=== PATIENT | female | born 1925 | race Caucasian/White ===

== ENCOUNTER 2016-08-27 19:27 | Inpatient (IN) | payer MEDICARE ==
[~2016-08-27] VITALS: Ht 165.1 cm; Wt 43.5 kg
[~2016-08-27 19:27] MED LIST: ATENOLOL25 MG ORAL
[2016-08-27 19:40] VITALS: BP 125/53
[2016-08-27 20:29] LABS: EOSINOPHILS % (AUTO) 1.2 % (0.0-3.0); LYMPHOCYTES % (AUTO) 10.3 % (20.0-45.0); MEAN CORPUSCULAR HEMOGLOBIN 32.5 PG (27.0-31.0); MEAN CORPUSCULAR HGB CONC 32.6 G/DL (32.0-36.0); MEAN CORPUSCULAR VOLUME 100 FL (80-99); MEAN PLATELET VOLUME 8.6 FL (6.5-10.1); MONOCYTES % (AUTO) 9.9 % (1.0-10.0); NEUTROPHILS % (AUTO) 77.6 % (45.0-75.0); PLATELET COUNT 216 K/UL (150-450); RED BLOOD COUNT 3.72 M/UL (4.20-5.40); RED CELL DISTRIBUTION WIDTH 12.1 % (11.6-14.8)
[2016-08-27 20:34] LABS: PROTHROMBIN TIME 10.1 SEC (9.30-11.50)
[2016-08-27 20:43] LABS: TROPONIN I < 0.30 ng/mL (<=0.30)
[2016-08-27 20:47] LABS: ALANINE AMINOTRANSFERASE 17 U/L (3-33); ANION GAP 8 (5-15); ASPARTATE AMINO TRANSFERASE 19 U/L (5-40); CARBON DIOXIDE 28 mEQ/L (20-30); CHLORIDE 102 mEQ/L (98-107); CREATININE 0.6 mg/dL (0.5-0.9); HEMOLYSIS 3; POTASSIUM 4.2 mEQ/L (3.4-4.9); SODIUM 138 mEQ/L (135-145); TOTAL PROTEIN 6.8 g/dL (6.6-8.7)
[2016-08-27 20:58] LABS: CKMB 4.7 ng/mL (< 3.8)
[2016-08-27 21:30] VITALS: BP 140/72
[2016-08-27] MEDS ORDERED: Morphine Sulfate 2mg/ml Inj IVP ONE ×3 (21:30→22:30)
[2016-08-27] MEDS ORDERED: Vancomycin 1 GM in NS 275 ML IV ONE (21:30)
[2016-08-27 22:00] VITALS: BP 151/105
[2016-08-27] MEDS ORDERED: Vancomycin 1gm inj IVPB ONE (22:00)
[2016-08-27] MEDS ORDERED: NS 275 ML ONE (22:00)
[2016-08-27] MEDS ORDERED: Atenolol 25mg tab ORAL ONE (22:00)
[2016-08-27] MEDS ORDERED: Tylenol #3 tab (300mg/30mg) ORAL ONE (22:00)
[2016-08-27] MEDS ORDERED: Morphine Sulfate 2mg/ml Inj IM PRN (22:00)
--- NOTE | 2016-08-27 22:54 | Emergency Room Report ---
History of Present Illness General Chief Complaint: Wound Recheck/Suture Removal Source: Patient Present Illness HPI 89-year-old female presents ED for evaluation of ulcer to the left ankle. States that approximately 3 months ago she bumped ankle against furniture and states that there was a cut. Patient states she never really took care of the ankle and has had increased swelling and pain with ulceration. Pain is 8/10, throbbing, radiating down the leg. Patient also notes bleeding from an ulcer. Denies taking blood thinners. Denies fevers or chills. No other aggravating relieving factors. Denies any other associated symptoms Allergies: Coded Allergies: No Known Allergies (Unverified , 08/27/16) Patient History Past Medical History: HTN Past Surgical History: none Pertinent Family History: none Social History: Denies: alcohol use, drug use, smoking Last Menstrual Period: n/a Now: No Immunizations: UTD Reviewed Nursing Documentation: PMH: Agreed, PSxH: Agreed Nursing Documentation-PMH Past Medical History: No History, Except For Hx Hypertension: Yes Review of Systems All Other Systems: negative except mentioned in HPI Physical Exam Vital Signs Date Time Temp Pulse Resp B/P Pulse Ox O2 Delivery O2 Flow Rate FiO2 08/27/16 19:21 97.9 106 16 126/65 98 Sp02 EP Interpretation: reviewed, normal General Appearance: no apparent distress, alert, GCS 15, non-toxic Head: normocephalic, atraumatic Eyes: bilateral eye PERRL, bilateral eye normal inspection ENT: hearing grossly normal, normal pharynx, no angioedema, normal voice Neck: full range of motion, supple/symm/no masses Respiratory: chest non-tender, lungs clear, normal breath sounds, speaking full sentences Cardiovascular #1: regular rate, rhythm, no edema Cardiovascular #2: 2+ carotid (R), 2+ carotid (L), 2+ radial (R), 2+ radial (L) , 2+ dorsalis pedis (R), 2+ dorsalis pedis (L) Gastrointestinal: normal bowel sounds, non tender, soft, non-distended, no guarding, no rebound Rectal: deferred Genitourinary: normal inspection, no CVA tenderness Musculoskeletal: back normal, gait/station normal, normal range of motion, non- tender Neurologic: alert, oriented x3, responsive, motor strength/tone normal, sensory intact, speech normal Psychiatric: judgement/insight normal, memory normal, mood/affect normal, no suicidal/homicidal ideation Reflexes: 3+ bicep (R), 3+ bicep (L), 3+ tricep (R), 3+ tricep (L), 3+ knee (R) , 3+ knee (L) Skin: other - ulceration noted to L ankle. some point bleeding noted. erythema/ iinduration noted to L foot and ankle Lymphatic: no adenopathy Medical Decision Making Diagnostic Impression: Primary Impression: Cellulitis of left ankle Additional Impression: Atrial fibrillation with rapid ventricular response ER Course Hospital Course 89-year-old female presents to ED with bleeding and pain of the left ankle. Ulcer on treated for many months Differential diagnoses include: Cellulitis, abscess, rash. Clinical course Patient placed on stretcher. After initial history and physical I ordered labs , blood Cx, UA, IVFs labs reviewed - no leukocytosis, Hb/Hct stable, no electrolyte abnormalities. Patient noted to be tachycardic. EKG shows atrial fibrillation with RVR Patient given atenolol. Refusing IV medications Pressure dressing applied to the ankle with bleeding controlled. antibiotics given. Case discussed with Dr Catherine and he agreed to accept the patient to his service for further care and support Diagnosis - cellulitis of left ankle, afib with RVR Patient admitted to telemetry in serious condition Labs Test 08/27/16 19:35 White Blood Count 7.0 K/UL (4.8-10.8) Red Blood Count 3.72 M/UL (4.20-5.40) Hemoglobin 12.1 G/DL (12.0-16.0) Hematocrit 37.0 % (37.0-47.0) Mean Corpuscular Volume 100 FL (80-99) Mean Corpuscular Hemoglobin 32.5 PG (27.0-31.0) Mean Corpuscular Hemoglobin Concent 32.6 G/DL (32.0-36.0) Red Cell Distribution Width 12.1 % (11.6-14.8) Platelet Count 216 K/UL (150-450) Mean Platelet Volume 8.6 FL (6.5-10.1) Neutrophils (%) (Auto) 77.6 % (45.0-75.0) Lymphocytes (%) (Auto) 10.3 % (20.0-45.0) Monocytes (%) (Auto) 9.9 % (1.0-10.0) Eosinophils (%) (Auto) 1.2 % (0.0-3.0) Basophils (%) (Auto) 1.0 % (0.0-2.0) Prothrombin Time 10.1 SEC (9.30-11.50) Prothromb Time International Ratio 1.0 (0.9-1.1) Activated Partial Thromboplast Time 24 SEC (23-33) Sodium Level 138 mEQ/L (135-145) Potassium Level 4.2 mEQ/L (3.4-4.9) Chloride Level 102 mEQ/L (98-107) Carbon Dioxide Level 28 mEQ/L (20-30) Anion Gap 8 (5-15) Blood Urea Nitrogen 27 mg/dL (7-23) Creatinine 0.6 mg/dL (0.5-0.9) Estimat Glomerular Filtration Rate mL/min (>60) Glucose Level 125 mg/dL (74-106) Lactic Acid Level 1.20 mmol/L (0.66-2.22) Calcium Level 9.0 mg/dL (8.6-10.2) Total Bilirubin 0.4 mg/dL (0.0-1.2) Aspartate Amino Transf (AST/SGOT) 19 U/L (5-40) Alanine Aminotransferase (ALT/SGPT) 17 U/L (3-33) Alkaline Phosphatase 69 U/L (35-104) Total Creatine Kinase 83 U/L (26-140) Creatine Kinase MB 4.7 ng/mL (< 3.8) Creatine Kinase MB Relative Index 5.6 Troponin I < 0.30 ng/mL (<=0.30) Total Protein 6.8 g/dL (6.6-8.7) Albumin 3.4 g/dL (3.5-5.2) Globulin 3.4 g/dL Albumin/Globulin Ratio 1.0 (1.0-2.7) EKG Diagnostic Results Rate: tachycardiac Rhythm: other - afib with RVR ST Segments: no acute changes ASA given to the pt in ED: No Rhythm Strip Diag. Results EP Interpretation: yes Rhythm: no PVC's, no ectopy Last Vital Signs Date Time Temp Pulse Resp B/P Pulse Ox O2 Delivery O2 Flow Rate FiO2 7/12/17 19:21 97.9 106 16 126/65 98 Status: improved Disposition: ADMITTED INPATIENT Condition: Serious Referrals: NOT CHOSEN LONNY/,REFERRING (PCP) TRISHA SAGASTUME M.D. Aug 27, 2016 22:54
[2016-08-27 23:01] VITALS: BP 151/100
[2016-08-28] VITALS (7 sets, daily range): BP systolic 107–136; BP diastolic 58–72
[2016-08-28] MEDS ORDERED: Diltiazem 25mg/5ml IV ONE
[2016-08-28] MEDS ORDERED: ATENOLOL25 MG ORAL (02:00)
[2016-08-28] MEDS: Atenolol 25mg tab ORAL SCH ×2 (08:43→21:30)
--- NOTE | 2016-08-28 09:26 | Diagnostic Imaging Report ---
Indications: Chest pain Technique: Leg the chest Findings: Comparison: None Cardiac silhouette enlarged. Pulmonary vasculature within normal limits. Lungs normally, symmetrically inflated. Lungs and pleura clear. Thoracic aorta mildly calcified and elongated. Bones diffusely demineralized. Thoracolumbar S-shaped scoliosis. IMPRESSION: No evidence of acute cardiopulmonary disease Cardiomegaly suggests cardiomyopathy Other chronic changes as described
[2016-08-28 09:27] LABS: BASOPHILS % (AUTO) 0.7 % (0.0-2.0); EOSINOPHILS % (AUTO) 0.9 % (0.0-3.0); MEAN CORPUSCULAR HEMOGLOBIN 31.7 PG (27.0-31.0); MEAN CORPUSCULAR HGB CONC 31.6 G/DL (32.0-36.0); MEAN CORPUSCULAR VOLUME 100 FL (80-99); MEAN PLATELET VOLUME 8.1 FL (6.5-10.1); MONOCYTES % (AUTO) 13.8 % (1.0-10.0); NEUTROPHILS % (AUTO) 73.6 % (45.0-75.0); PLATELET COUNT 217 K/UL (150-450); RED BLOOD COUNT 3.28 M/UL (4.20-5.40); RED CELL DISTRIBUTION WIDTH 12.2 % (11.6-14.8)
[2016-08-28 09:50] LABS: ANION GAP 11 (5-15); CALCIUM 8.9 mg/dL (8.6-10.2); CARBON DIOXIDE 27 mEQ/L (20-30); CHLORIDE 99 mEQ/L (98-107); CREATININE 0.5 mg/dL (0.5-0.9); HEMOLYSIS 0; POTASSIUM 4.1 mEQ/L (3.4-4.9); SODIUM 137 mEQ/L (135-145)
--- NOTE | 2016-08-28 11:04 | History & Physical ---
History and Physical History & Physicial Pt seen and examined, full H+P to follow, see admit orders Pt admitted for LE cellulitis, now on IV abx, ID consult pending, also with atrial fib on rate control, to be followed by cardiology CARLOS PONCE Aug 28, 2016 11:04
--- NOTE | 2016-08-28 14:23 | Infectious Diseases Prog Note ---
Assessment/Plan Assessment/Plan Full consult dictated: A) 1) left leg cellulitis and wound, hx mrsa per patient 2) pmh noted 3) allergies - negative P) 1) vancomycin 2) check wound culture and labs 3) wound care per protocol 4) thank you Subjective Allergies: Coded Allergies: No Known Allergies (Unverified , 08/27/16) Objective Vital Signs Last 24 Hour Vital Signs Date Time Temp Pulse Resp B/P Pulse Ox O2 Delivery O2 Flow Rate FiO2 08/28/16 12:00 91 08/28/16 12:00 97.7 89 20 112/67 94 Room Air 08/28/16 08:43 107 113/71 08/28/16 08:00 97.5 107 21 113/71 95 Room Air 08/28/16 08:00 110 08/28/16 04:00 98.0 108 20 107/62 98 Room Air 08/28/16 04:00 107 08/28/16 01:20 97.9 109 20 131/72 98 Room Air 08/28/16 00:45 98.1 08/28/16 00:39 98.1 94 24 136/61 98 Nasal Cannula 2.0 08/28/16 00:14 98.1 94 24 136/61 98 Nasal Cannula 2.0 08/28/16 00:02 130 139/78 08/27/16 23:01 108 18 151/100 97 08/27/16 22:00 108 18 151/105 97 Room Air 08/27/16 22:00 128 150/100 08/27/16 21:30 95 18 140/72 97 Room Air 08/27/16 19:40 88 16 125/53 99 Room Air 08/27/16 19:21 97.9 106 16 126/65 98 Height (Feet): 5 Height (Inches): 5.00 Weight (Pounds): 96 Laboratory Tests Test 08/27/16 19:35 08/28/16 08:30 White Blood Count 7.0 K/UL (4.8-10.8) 8.0 K/UL (4.8-10.8) Red Blood Count 3.72 M/UL (4.20-5.40) L 3.28 M/UL (4.20-5.40) L Hemoglobin 12.1 G/DL (12.0-16.0) 10.4 G/DL (12.0-16.0) L Hematocrit 37.0 % (37.0-47.0) 32.8 % (37.0-47.0) L Mean Corpuscular Volume 100 FL (80-99) H 100 FL (80-99) H Mean Corpuscular Hemoglobin 32.5 PG (27.0-31.0) H 31.7 PG (27.0-31.0) H Mean Corpuscular Hemoglobin Concent 32.6 G/DL (32.0-36.0) 31.6 G/DL (32.0-36.0) L Red Cell Distribution Width 12.1 % (11.6-14.8) 12.2 % (11.6-14.8) Platelet Count 216 K/UL (150-450) 217 K/UL (150-450) Mean Platelet Volume 8.6 FL (6.5-10.1) 8.1 FL (6.5-10.1) Neutrophils (%) (Auto) 77.6 % (45.0-75.0) H 73.6 % (45.0-75.0) Lymphocytes (%) (Auto) 10.3 % (20.0-45.0) L 11.0 % (20.0-45.0) L Monocytes (%) (Auto) 9.9 % (1.0-10.0) 13.8 % (1.0-10.0) H Eosinophils (%) (Auto) 1.2 % (0.0-3.0) 0.9 % (0.0-3.0) Basophils (%) (Auto) 1.0 % (0.0-2.0) 0.7 % (0.0-2.0) Prothrombin Time 10.1 SEC (9.30-11.50) Prothromb Time International Ratio 1.0 (0.9-1.1) Activated Partial Thromboplast Time 24 SEC (23-33) Sodium Level 138 mEQ/L (135-145) 137 mEQ/L (135-145) Potassium Level 4.2 mEQ/L (3.4-4.9) 4.1 mEQ/L (3.4-4.9) Chloride Level 102 mEQ/L (98-107) 99 mEQ/L (98-107) Carbon Dioxide Level 28 mEQ/L (20-30) 27 mEQ/L (20-30) Anion Gap 8 (5-15) 11 (5-15) Blood Urea Nitrogen 27 mg/dL (7-23) H 21 mg/dL (7-23) Creatinine 0.6 mg/dL (0.5-0.9) 0.5 mg/dL (0.5-0.9) Estimat Glomerular Filtration Rate mL/min (>60) mL/min (>60) Glucose Level 125 mg/dL (74-106) H 133 mg/dL (74-106) H Lactic Acid Level 1.20 mmol/L (0.66-2.22) Calcium Level 9.0 mg/dL (8.6-10.2) 8.9 mg/dL (8.6-10.2) Total Bilirubin 0.4 mg/dL (0.0-1.2) Aspartate Amino Transf (AST/SGOT) 19 U/L (5-40) Alanine Aminotransferase (ALT/SGPT) 17 U/L (3-33) Alkaline Phosphatase 69 U/L (35-104) Total Creatine Kinase 83 U/L (26-140) Creatine Kinase MB 4.7 ng/mL (< 3.8) H Creatine Kinase MB Relative Index 5.6 Troponin I < 0.30 ng/mL (<=0.30) Total Protein 6.8 g/dL (6.6-8.7) Albumin 3.4 g/dL (3.5-5.2) L Globulin 3.4 g/dL Albumin/Globulin Ratio 1.0 (1.0-2.7) Current Medications Medications (Trade) Dose Ordered Sig/Salome Route PRN Reason Start Time Stop Time Status Last Admin Dose Admin Atenolol (Tenormin) 25 mg Q12HR ORAL 08/28/16 09:00 09/27/16 08:59 08/28/16 08:43 Heparin Sodium (Porcine) 5000 units 5,000 units EVERY 12 HOURS SUBQ 08/28/16 21:00 09/27/16 20:59 Morphine Sulfate (Morphine Sulfate) 2 mg Q3H PRN IM PAIN 4-10 08/28/16 06:30 09/04/16 06:29 Vancomycin HCl (Vanco rx to dose) 1 ea DAILY PRN MISC Per rx protocol 08/28/16 10:45 09/27/16 10:44 Vancomycin HCl/ Dextrose (Vancomycin/D5W) 110 ml @ 110 mls/hr Q24H IVPB 08/28/16 22:00 09/02/16 21:59 LUKAS STEVENSON Aug 28, 2016 14:23
--- NOTE | 2016-08-28 16:31 | History and Physical ---
History of Present Illness General Date patient seen: Aug 28, 2016 Reason for Hospitalization: Wound Recheck/Suture Removal Present Illness Allergies: Coded Allergies: No Known Allergies (Unverified , 08/27/16) Medication History Scheduled Atenolol* (Tenormin*), 25 MG ORAL BID, (Reported) Discontinued Medications Atenolol* (Tenormin*), 25 MG ORAL DAILY, (Reported) Discontinued Reason: Medication dose changed Patient History Healthcare decision maker Resuscitation status Full Code Advanced Directive on File Review of Systems Constitutional: Reports: chills, fever, malaise, no symptoms, other, see HPI, sweats, weakness Eye: Reports: acuity changes, blurred vision, discharge, double vision, eye pain, no symptoms, nose congestion, nose pain, other, see HPI, tearing ENT: Reports: ear discharge, ear pain, hearing loss, mouth pain, nasal discharge, no symptoms, nose congestion, nose pain, other, see HPI, throat pain , throat swelling Respiratory: Reports: cough, no symptoms Cardiovascular: Reports: chest pain Physical Exam General Appearance: no apparent distress, severe distress, agitated, combative Lines, tubes and drains: peripheral, central line, PICC HEENT: PERRL, no JVD - jvd present Last 24 Hour Vital Signs Date Time Temp Pulse Resp B/P Pulse Ox O2 Delivery O2 Flow Rate FiO2 08/28/16 12:00 91 08/28/16 12:00 97.7 89 20 112/67 94 Room Air 08/28/16 08:43 107 113/71 08/28/16 08:00 97.5 107 21 113/71 95 Room Air 08/28/16 08:00 110 08/28/16 04:00 98.0 108 20 107/62 98 Room Air 08/28/16 04:00 107 08/28/16 01:20 97.9 109 20 131/72 98 Room Air 08/28/16 00:45 98.1 08/28/16 00:39 98.1 94 24 136/61 98 Nasal Cannula 2.0 08/28/16 00:14 98.1 94 24 136/61 98 Nasal Cannula 2.0 08/28/16 00:02 130 139/78 08/27/16 23:01 108 18 151/100 97 08/27/16 22:00 108 18 151/105 97 Room Air 08/27/16 22:00 128 150/100 08/27/16 21:30 95 18 140/72 97 Room Air 08/27/16 19:40 88 16 125/53 99 Room Air 08/27/16 19:21 97.9 106 16 126/65 98 Intake and Output 08/27/16 08/28/16 19:00 07:00 Intake Total 395 ml Balance 395 ml Intake Oral 120 ml IV Total 275 ml # Voids 2 Laboratory Tests Test 08/27/16 19:35 08/28/16 08:30 White Blood Count 7.0 K/UL (4.8-10.8) 8.0 K/UL (4.8-10.8) Red Blood Count 3.72 M/UL (4.20-5.40) L 3.28 M/UL (4.20-5.40) L Hemoglobin 12.1 G/DL (12.0-16.0) 10.4 G/DL (12.0-16.0) L Hematocrit 37.0 % (37.0-47.0) 32.8 % (37.0-47.0) L Mean Corpuscular Volume 100 FL (80-99) H 100 FL (80-99) H Mean Corpuscular Hemoglobin 32.5 PG (27.0-31.0) H 31.7 PG (27.0-31.0) H Mean Corpuscular Hemoglobin Concent 32.6 G/DL (32.0-36.0) 31.6 G/DL (32.0-36.0) L Red Cell Distribution Width 12.1 % (11.6-14.8) 12.2 % (11.6-14.8) Platelet Count 216 K/UL (150-450) 217 K/UL (150-450) Mean Platelet Volume 8.6 FL (6.5-10.1) 8.1 FL (6.5-10.1) Neutrophils (%) (Auto) 77.6 % (45.0-75.0) H 73.6 % (45.0-75.0) Lymphocytes (%) (Auto) 10.3 % (20.0-45.0) L 11.0 % (20.0-45.0) L Monocytes (%) (Auto) 9.9 % (1.0-10.0) 13.8 % (1.0-10.0) H Eosinophils (%) (Auto) 1.2 % (0.0-3.0) 0.9 % (0.0-3.0) Basophils (%) (Auto) 1.0 % (0.0-2.0) 0.7 % (0.0-2.0) Prothrombin Time 10.1 SEC (9.30-11.50) Prothromb Time International Ratio 1.0 (0.9-1.1) Activated Partial Thromboplast Time 24 SEC (23-33) Sodium Level 138 mEQ/L (135-145) 137 mEQ/L (135-145) Potassium Level 4.2 mEQ/L (3.4-4.9) 4.1 mEQ/L (3.4-4.9) Chloride Level 102 mEQ/L (98-107) 99 mEQ/L (98-107) Carbon Dioxide Level 28 mEQ/L (20-30) 27 mEQ/L (20-30) Anion Gap 8 (5-15) 11 (5-15) Blood Urea Nitrogen 27 mg/dL (7-23) H 21 mg/dL (7-23) Creatinine 0.6 mg/dL (0.5-0.9) 0.5 mg/dL (0.5-0.9) Estimat Glomerular Filtration Rate mL/min (>60) mL/min (>60) Glucose Level 125 mg/dL (74-106) H 133 mg/dL (74-106) H Lactic Acid Level 1.20 mmol/L (0.66-2.22) Calcium Level 9.0 mg/dL (8.6-10.2) 8.9 mg/dL (8.6-10.2) Total Bilirubin 0.4 mg/dL (0.0-1.2) Aspartate Amino Transf (AST/SGOT) 19 U/L (5-40) Alanine Aminotransferase (ALT/SGPT) 17 U/L (3-33) Alkaline Phosphatase 69 U/L (35-104) Total Creatine Kinase 83 U/L (26-140) Creatine Kinase MB 4.7 ng/mL (< 3.8) H Creatine Kinase MB Relative Index 5.6 Troponin I < 0.30 ng/mL (<=0.30) Total Protein 6.8 g/dL (6.6-8.7) Albumin 3.4 g/dL (3.5-5.2) L Globulin 3.4 g/dL Albumin/Globulin Ratio 1.0 (1.0-2.7) Height (Feet): 5 Height (Inches): 5.00 Weight (Pounds): 96 Medications Current Medications Medications (Trade) Dose Ordered Sig/Salome Route PRN Reason Start Time Stop Time Status Last Admin Dose Admin Atenolol (Tenormin) 25 mg Q12HR ORAL 08/28/16 09:00 09/27/16 08:59 08/28/16 08:43 Heparin Sodium (Porcine) 5000 units 5,000 units EVERY 12 HOURS SUBQ 08/28/16 21:00 09/27/16 20:59 Morphine Sulfate (Morphine Sulfate) 2 mg Q3H PRN IM PAIN 4-10 08/28/16 06:30 09/04/16 06:29 Vancomycin HCl (Vanco rx to dose) 1 ea DAILY PRN MISC Per rx protocol 08/28/16 10:45 09/27/16 10:44 Vancomycin HCl/ Dextrose (Vancomycin/D5W) 110 ml @ 110 mls/hr Q24H IVPB 08/28/16 22:00 09/02/16 21:59 Meggan Hussein NMaverick Aug 28, 2016 16:30
--- NOTE | 2016-08-28 19:01 | History and Physical ---
Meggan Hussein N.P. 08/28/16 1901: History of Present Illness General Date patient seen: Aug 28, 2016 Time patient seen: 19:01 Reason for Hospitalization: LLE cellulitis Present Illness HPI 89-year-old female with a PMH of milton charles on metoprolol who presented to ED for evaluation of ulcer to the left lower extremity. She states that this started approximately 3 months ago when she bumped her left lower extremity against furniture and subsequently had a cut. She states that she was previously told she had MRSA of her LLE. Patient states that she never really took care of the leg and had increased swelling with pain, ulceration, and bleeding. Pain is 8/10 , throbbing, radiating down the leg. Patient also notes bleeding from an ulcer. Denies taking blood thinners. Denies fevers or chills. No other aggravating relieving factors. Denies any other associated symptom. Denies chest pain, SOB, n/v. Allergies: Coded Allergies: No Known Allergies (Unverified , 08/27/16) Medication History Scheduled Atenolol* (Tenormin*), 25 MG ORAL BID, (Reported) Discontinued Medications Atenolol* (Tenormin*), 25 MG ORAL DAILY, (Reported) Discontinued Reason: Medication dose changed Patient History History Provided By: Patient, Friend Healthcare decision maker Resuscitation status Full Code Advanced Directive on File Past Medical/Surgical History Past Medical/Surgical History: (1) Cellulitis of left ankle (2) Atrial fibrillation with rapid ventricular response Review of Systems Skin: Reports: lesions, rash Physical Exam General Appearance: no apparent distress, alert HEENT: normocephalic, atraumatic, PERRL, supple, no JVD Neck: non-tender, supple, normal inspection Respiratory/Chest: lungs clear, normal breath sounds, no respiratory distress Cardiovascular/Chest: no gallop/murmur, irregularly irregular Abdomen: normal bowel sounds, non tender, soft, no mass Extremities: normal range of motion, no calf tenderness, trace edema Skin Exam: other - left lower extremity ulcer with active drainage and surrounding erythema Neurologic: biomedical photographer II-XII grossly normal, no motor/sensory deficits, alert, oriented x 3 Musculoskeletal: atrophy Last 24 Hour Vital Signs Date Time Temp Pulse Resp B/P Pulse Ox O2 Delivery O2 Flow Rate FiO2 08/28/16 16:00 98.1 97 19 122/63 93 Room Air 08/28/16 16:00 92 08/28/16 12:00 91 08/28/16 12:00 97.7 89 20 112/67 94 Room Air 08/28/16 08:43 107 113/71 08/28/16 08:00 97.5 107 21 113/71 95 Room Air 08/28/16 08:00 110 08/28/16 04:00 98.0 108 20 107/62 98 Room Air 08/28/16 04:00 107 08/28/16 01:20 97.9 109 20 131/72 98 Room Air 08/28/16 00:45 98.1 08/28/16 00:39 98.1 94 24 136/61 98 Nasal Cannula 2.0 08/28/16 00:14 98.1 94 24 136/61 98 Nasal Cannula 2.0 08/28/16 00:02 130 139/78 08/27/16 23:01 108 18 151/100 97 08/27/16 22:00 108 18 151/105 97 Room Air 08/27/16 22:00 128 150/100 08/27/16 21:30 95 18 140/72 97 Room Air 08/27/16 19:40 88 16 125/53 99 Room Air 08/27/16 19:21 97.9 106 16 126/65 98 Intake and Output 08/27/16 08/28/16 19:00 07:00 Intake Total 395 ml Balance 395 ml Intake Oral 120 ml IV Total 275 ml # Voids 2 Laboratory Tests Test 08/27/16 19:35 08/28/16 08:30 White Blood Count 7.0 K/UL (4.8-10.8) 8.0 K/UL (4.8-10.8) Red Blood Count 3.72 M/UL (4.20-5.40) L 3.28 M/UL (4.20-5.40) L Hemoglobin 12.1 G/DL (12.0-16.0) 10.4 G/DL (12.0-16.0) L Hematocrit 37.0 % (37.0-47.0) 32.8 % (37.0-47.0) L Mean Corpuscular Volume 100 FL (80-99) H 100 FL (80-99) H Mean Corpuscular Hemoglobin 32.5 PG (27.0-31.0) H 31.7 PG (27.0-31.0) H Mean Corpuscular Hemoglobin Concent 32.6 G/DL (32.0-36.0) 31.6 G/DL (32.0-36.0) L Red Cell Distribution Width 12.1 % (11.6-14.8) 12.2 % (11.6-14.8) Platelet Count 216 K/UL (150-450) 217 K/UL (150-450) Mean Platelet Volume 8.6 FL (6.5-10.1) 8.1 FL (6.5-10.1) Neutrophils (%) (Auto) 77.6 % (45.0-75.0) H 73.6 % (45.0-75.0) Lymphocytes (%) (Auto) 10.3 % (20.0-45.0) L 11.0 % (20.0-45.0) L Monocytes (%) (Auto) 9.9 % (1.0-10.0) 13.8 % (1.0-10.0) H Eosinophils (%) (Auto) 1.2 % (0.0-3.0) 0.9 % (0.0-3.0) Basophils (%) (Auto) 1.0 % (0.0-2.0) 0.7 % (0.0-2.0) Prothrombin Time 10.1 SEC (9.30-11.50) Prothromb Time International Ratio 1.0 (0.9-1.1) Activated Partial Thromboplast Time 24 SEC (23-33) Sodium Level 138 mEQ/L (135-145) 137 mEQ/L (135-145) Potassium Level 4.2 mEQ/L (3.4-4.9) 4.1 mEQ/L (3.4-4.9) Chloride Level 102 mEQ/L (98-107) 99 mEQ/L (98-107) Carbon Dioxide Level 28 mEQ/L (20-30) 27 mEQ/L (20-30) Anion Gap 8 (5-15) 11 (5-15) Blood Urea Nitrogen 27 mg/dL (7-23) H 21 mg/dL (7-23) Creatinine 0.6 mg/dL (0.5-0.9) 0.5 mg/dL (0.5-0.9) Estimat Glomerular Filtration Rate mL/min (>60) mL/min (>60) Glucose Level 125 mg/dL (74-106) H 133 mg/dL (74-106) H Lactic Acid Level 1.20 mmol/L (0.66-2.22) Calcium Level 9.0 mg/dL (8.6-10.2) 8.9 mg/dL (8.6-10.2) Total Bilirubin 0.4 mg/dL (0.0-1.2) Aspartate Amino Transf (AST/SGOT) 19 U/L (5-40) Alanine Aminotransferase (ALT/SGPT) 17 U/L (3-33) Alkaline Phosphatase 69 U/L (35-104) Total Creatine Kinase 83 U/L (26-140) Creatine Kinase MB 4.7 ng/mL (< 3.8) H Creatine Kinase MB Relative Index 5.6 Troponin I < 0.30 ng/mL (<=0.30) Total Protein 6.8 g/dL (6.6-8.7) Albumin 3.4 g/dL (3.5-5.2) L Globulin 3.4 g/dL Albumin/Globulin Ratio 1.0 (1.0-2.7) Height (Feet): 5 Height (Inches): 5.00 Weight (Pounds): 96 Medications Current Medications Medications (Trade) Dose Ordered Sig/Salome Route PRN Reason Start Time Stop Time Status Last Admin Dose Admin Atenolol (Tenormin) 25 mg Q12HR ORAL 08/28/16 09:00 09/27/16 08:59 08/28/16 08:43 Heparin Sodium (Porcine) 5000 units 5,000 units EVERY 12 HOURS SUBQ 08/28/16 21:00 09/27/16 20:59 Morphine Sulfate (Morphine Sulfate) 2 mg Q3H PRN IM PAIN 4-10 08/28/16 06:30 09/04/16 06:29 Vancomycin HCl (Vanco rx to dose) 1 ea DAILY PRN MISC Per rx protocol 08/28/16 10:45 09/27/16 10:44 Vancomycin HCl/ Dextrose (Vancomycin/D5W) 110 ml @ 110 mls/hr Q24H IVPB 08/28/16 22:00 09/02/16 21:59 Assessment/Plan Status: stable Status Narrative 89 y/o female presenting with LLE cellulitis, h/o MRSA, h/o a.fibb, rate controlled. Assessment/Plan Laboratory Tests Test 08/27/16 19:35 08/28/16 08:30 White Blood Count 7.0 K/UL (4.8-10.8) 8.0 K/UL (4.8-10.8) Red Blood Count 3.72 M/UL (4.20-5.40) L 3.28 M/UL (4.20-5.40) L Hemoglobin 12.1 G/DL (12.0-16.0) 10.4 G/DL (12.0-16.0) L Hematocrit 37.0 % (37.0-47.0) 32.8 % (37.0-47.0) L Mean Corpuscular Volume 100 FL (80-99) H 100 FL (80-99) H Mean Corpuscular Hemoglobin 32.5 PG (27.0-31.0) H 31.7 PG (27.0-31.0) H Mean Corpuscular Hemoglobin Concent 32.6 G/DL (32.0-36.0) 31.6 G/DL (32.0-36.0) L Red Cell Distribution Width 12.1 % (11.6-14.8) 12.2 % (11.6-14.8) Platelet Count 216 K/UL (150-450) 217 K/UL (150-450) Mean Platelet Volume 8.6 FL (6.5-10.1) 8.1 FL (6.5-10.1) Neutrophils (%) (Auto) 77.6 % (45.0-75.0) H 73.6 % (45.0-75.0) Lymphocytes (%) (Auto) 10.3 % (20.0-45.0) L 11.0 % (20.0-45.0) L Monocytes (%) (Auto) 9.9 % (1.0-10.0) 13.8 % (1.0-10.0) H Eosinophils (%) (Auto) 1.2 % (0.0-3.0) 0.9 % (0.0-3.0) Basophils (%) (Auto) 1.0 % (0.0-2.0) 0.7 % (0.0-2.0) Prothrombin Time 10.1 SEC (9.30-11.50) Prothrombin Time INR 1.0 (0.9-1.1) PTT 24 SEC (23-33) Sodium Level 138 mEQ/L (135-145) 137 mEQ/L (135-145) Potassium Level 4.2 mEQ/L (3.4-4.9) 4.1 mEQ/L (3.4-4.9) Chloride Level 102 mEQ/L (98-107) 99 mEQ/L (98-107) Carbon Dioxide Level 28 mEQ/L (20-30) 27 mEQ/L (20-30) Anion Gap 8 (5-15) 11 (5-15) Blood Urea Nitrogen 27 mg/dL (7-23) H 21 mg/dL (7-23) Creatinine 0.6 mg/dL (0.5-0.9) 0.5 mg/dL (0.5-0.9) Estimate Glomerular Filtration Rate mL/min (>60) mL/min (>60) Glucose Level 125 mg/dL (74-106) H 133 mg/dL (74-106) H Lactic Acid Level 1.20 mmol/L (0.66-2.22) Calcium Level 9.0 mg/dL (8.6-10.2) 8.9 mg/dL (8.6-10.2) Total Bilirubin 0.4 mg/dL (0.0-1.2) Aspartate Amino Transferase (AST) 19 U/L (5-40) Alanine Aminotransferase (ALT) 17 U/L (3-33) Alkaline Phosphatase 69 U/L (35-104) Total Creatine Kinase 83 U/L (26-140) Creatine Kinase MB 4.7 ng/mL (< 3.8) H Creatine Kinase MB Relative Index 5.6 Troponin I < 0.30 ng/mL (<=0.30) Total Protein 6.8 g/dL (6.6-8.7) Albumin 3.4 g/dL (3.5-5.2) L Globulin 3.4 g/dL Albumin/Globulin Ratio 1.0 (1.0-2.7) #LLE cellulitis, h/o MRSA - Admit to inpatient - IV vancomycin - F/u wound C&S - f/u blood cx - wound c/s - ID consult, Dr. Steele - no leuks, afebrile - pain control, supportive care - bowel regimen #A. fibb, rate-controlled - continue metoprolol 25mg PO qday - cards consult, Dr. Yuen - f/u ECHO - not on any blood thinners. Per patient, patient cannot tolerate even ASA 81mg ; states she has excessive bleeding from minor cuts #DVT ppx, high - heparin 5,000 units BID CARLOS PONCE 08/29/16 1423: History of Present Illness General Reason for Hospitalization: LLE cellulitis Present Illness Allergies: Coded Allergies: No Known Allergies (Unverified , 08/27/16) Medication History Scheduled Atenolol* (Tenormin*), 25 MG ORAL BID, (Reported) Discontinued Medications Atenolol* (Tenormin*), 25 MG ORAL DAILY, (Reported) Discontinued Reason: Medication dose changed Assessment/Plan Assessment/Plan I saw and examined the patient, reviewed the case in detail, reviewed radiology and EKG if applicable, in addition reviewing the laboratory data and microbiology. I agree with the history, physical examination findings, assessment and plan of care as outlined above by the Nurse Practitioner with any additions or modifications noted. Meggan Hussein N.P. Aug 28, 2016 19:01 CARLOS PONCE Aug 29, 2016 14:23
--- NOTE | 2016-08-28 19:04 | Cardiac Electrophysiology PN ---
Subjective Subjective [id number] Objective Last 24 Hour Vital Signs Date Time Temp Pulse Resp B/P Pulse Ox O2 Delivery O2 Flow Rate FiO2 08/28/16 16:00 98.1 97 19 122/63 93 Room Air 08/28/16 16:00 92 08/28/16 12:00 91 08/28/16 12:00 97.7 89 20 112/67 94 Room Air 08/28/16 08:43 107 113/71 08/28/16 08:00 97.5 107 21 113/71 95 Room Air 08/28/16 08:00 110 08/28/16 04:00 98.0 108 20 107/62 98 Room Air 08/28/16 04:00 107 08/28/16 01:20 97.9 109 20 131/72 98 Room Air 08/28/16 00:45 98.1 08/28/16 00:39 98.1 94 24 136/61 98 Nasal Cannula 2.0 08/28/16 00:14 98.1 94 24 136/61 98 Nasal Cannula 2.0 08/28/16 00:02 130 139/78 08/27/16 23:01 108 18 151/100 97 08/27/16 22:00 108 18 151/105 97 Room Air 08/27/16 22:00 128 150/100 08/27/16 21:30 95 18 140/72 97 Room Air 08/27/16 19:40 88 16 125/53 99 Room Air 08/27/16 19:21 97.9 106 16 126/65 98 Intake and Output 08/27/16 08/28/16 19:00 07:00 Intake Total 395 ml Balance 395 ml Intake Oral 120 ml IV Total 275 ml # Voids 2 Laboratory Tests Test 08/27/16 19:35 08/28/16 08:30 White Blood Count 7.0 K/UL (4.8-10.8) 8.0 K/UL (4.8-10.8) Red Blood Count 3.72 M/UL (4.20-5.40) L 3.28 M/UL (4.20-5.40) L Hemoglobin 12.1 G/DL (12.0-16.0) 10.4 G/DL (12.0-16.0) L Hematocrit 37.0 % (37.0-47.0) 32.8 % (37.0-47.0) L Mean Corpuscular Volume 100 FL (80-99) H 100 FL (80-99) H Mean Corpuscular Hemoglobin 32.5 PG (27.0-31.0) H 31.7 PG (27.0-31.0) H Mean Corpuscular Hemoglobin Concent 32.6 G/DL (32.0-36.0) 31.6 G/DL (32.0-36.0) L Red Cell Distribution Width 12.1 % (11.6-14.8) 12.2 % (11.6-14.8) Platelet Count 216 K/UL (150-450) 217 K/UL (150-450) Mean Platelet Volume 8.6 FL (6.5-10.1) 8.1 FL (6.5-10.1) Neutrophils (%) (Auto) 77.6 % (45.0-75.0) H 73.6 % (45.0-75.0) Lymphocytes (%) (Auto) 10.3 % (20.0-45.0) L 11.0 % (20.0-45.0) L Monocytes (%) (Auto) 9.9 % (1.0-10.0) 13.8 % (1.0-10.0) H Eosinophils (%) (Auto) 1.2 % (0.0-3.0) 0.9 % (0.0-3.0) Basophils (%) (Auto) 1.0 % (0.0-2.0) 0.7 % (0.0-2.0) Prothrombin Time 10.1 SEC (9.30-11.50) Prothromb Time International Ratio 1.0 (0.9-1.1) Activated Partial Thromboplast Time 24 SEC (23-33) Sodium Level 138 mEQ/L (135-145) 137 mEQ/L (135-145) Potassium Level 4.2 mEQ/L (3.4-4.9) 4.1 mEQ/L (3.4-4.9) Chloride Level 102 mEQ/L (98-107) 99 mEQ/L (98-107) Carbon Dioxide Level 28 mEQ/L (20-30) 27 mEQ/L (20-30) Anion Gap 8 (5-15) 11 (5-15) Blood Urea Nitrogen 27 mg/dL (7-23) H 21 mg/dL (7-23) Creatinine 0.6 mg/dL (0.5-0.9) 0.5 mg/dL (0.5-0.9) Estimat Glomerular Filtration Rate mL/min (>60) mL/min (>60) Glucose Level 125 mg/dL (74-106) H 133 mg/dL (74-106) H Lactic Acid Level 1.20 mmol/L (0.66-2.22) Calcium Level 9.0 mg/dL (8.6-10.2) 8.9 mg/dL (8.6-10.2) Total Bilirubin 0.4 mg/dL (0.0-1.2) Aspartate Amino Transf (AST/SGOT) 19 U/L (5-40) Alanine Aminotransferase (ALT/SGPT) 17 U/L (3-33) Alkaline Phosphatase 69 U/L (35-104) Total Creatine Kinase 83 U/L (26-140) Creatine Kinase MB 4.7 ng/mL (< 3.8) H Creatine Kinase MB Relative Index 5.6 Troponin I < 0.30 ng/mL (<=0.30) Total Protein 6.8 g/dL (6.6-8.7) Albumin 3.4 g/dL (3.5-5.2) L Globulin 3.4 g/dL Albumin/Globulin Ratio 1.0 (1.0-2.7) CHELY DAILY Aug 28, 2016 19:04
[2016-08-28] MEDS: Heparin 5000 units/ml inj SUBQ SCH (21:00)
[2016-08-28] MEDS: Morphine Sulfate 2mg/ml Inj IM PRN (21:42)
[2016-08-28] MEDS: Vancomycin 500mg/D5W 110ml IVPB SCH ×2 (22:06)
--- NOTE | 2016-08-28 23:39 | Wound Care Consultation ---
Wound Assessment Wound Assessment : Wound Number: #1 Wound Present on Admission: Yes New Wound: No Status Change of Wound: No Wound Location Body Site Modif: left, lower Wound Location Body Site: leg - and foot Wound Type: other - cellulitis with open wound Terrence Test: Does not Terrence Wound Thickness: Full Thickness Wound Drainage Description: Serosanguineous Wound Drainage Amount: Scant Wound Drainage Odor: None/Absent Tissue Surrounding Wound: Erythemic Wound General Appearance: Reddened, Draining Wound Comment #1 Left lower leg and foot cellulitis with open wound on lateral lower leg Recommendation -Left lower leg and foot with cellulitis Cleanse with saline, pat dry, apply Xeroform dressing, cover with 4x4, wrap with Kerlix daily and PRN soiled/dislodged -Keep clean and dry -Turn and reposition -Offload both heels -Elevate legs -Optimize nutrition -Assess and f/u accordingly for any changes WILLIE LUCIO RN Aug 28, 2016 23:39
[2016-08-29] VITALS: BP 121/62
[2016-08-29 04:00] VITALS: BP 113/57
[2016-08-29 08:00] VITALS: BP 138/72
[2016-08-29 08:10] LABS: THYROID STIMULATING HORMONE 1.37 uIU/mL (0.300-4.500)
[2016-08-29 08:21] LABS: APPEARANCE,URINE CLEAR; KETONES,URINE NEGATIVE (NEGATIVE); LEUKOCYTE ESTERASE ,URINE 1+ (NEGATIVE); NITRITE,URINE NEGATIVE (NEGATIVE); PH,URINE 5 (4.5-8.0); PROTEIN,URINE NEGATIVE (NEGATIVE); UROBILINOGEN,URINE NORMAL MG/DL (0.0-1.0)
[2016-08-29 08:31] LABS: BACTERIA,URINE FEW /HPF; RBC,URINE 0-2 /HPF (0 - 2); SQUAMOUS EPITHELIAL CELL,UR FEW /LPF (NONE/OCC)
[2016-08-29] MEDS: Aspirin EC 325mg tab ORAL SCH ×2 (09:00→09:48)
[2016-08-29] MEDS: Atenolol 25mg tab ORAL SCH ×2 (09:48→21:53)
[2016-08-29] MEDS: Heparin 5000 units/ml inj SUBQ SCH ×2 (09:51→21:54)
[2016-08-29] MEDS: Morphine Sulfate 2mg/ml Inj IM PRN ×3 (09:53→21:55)
[2016-08-29 12:00] VITALS: BP 115/68
[2016-08-29 16:00] VITALS: BP 130/65
--- NOTE | 2016-08-29 16:42 | General Progress Note ---
Assessment/Plan Problem List: (1) Cellulitis of left ankle Assessment & Plan: Cont IV abx per ID Apprec plastic surgery followup Wound care ICD Codes: L03.116 - Cellulitis of left lower limb SNOMED: 00714110 (2) Atrial fibrillation with rapid ventricular response Assessment & Plan: Cont rate control Apprec cardiology input Telemetry ICD Codes: I48.91 - Unspecified atrial fibrillation SNOMED: 171530421421239 Subjective Date patient seen: Aug 29, 2016 Time patient seen: 16:40 ROS Limited/Unobtainable: No Allergies: Coded Allergies: No Known Allergies (Unverified , 08/27/16) Subjective No acute overnight events, states leg pain is worse today, no fevers/chills, being examined at bedside by plastic surgery Objective Last 24 Hour Vital Signs Date Time Temp Pulse Resp B/P Pulse Ox O2 Delivery O2 Flow Rate FiO2 08/29/16 12:00 97.9 102 20 115/68 97 Room Air 08/29/16 09:48 88 138/72 08/29/16 08:00 97.0 88 21 138/72 92 Room Air 08/29/16 04:00 97.9 78 20 113/57 92 Room Air 2.0 08/29/16 04:00 83 08/29/16 00:00 97.9 72 18 121/62 92 Room Air 2.0 08/29/16 00:00 84 08/28/16 21:30 86 117/58 08/28/16 20:03 98.1 86 18 117/58 95 Room Air 2.0 08/28/16 20:00 83 Intake and Output 08/28/16 08/29/16 19:00 07:00 Intake Total 120 ml 230 ml Balance 120 ml 230 ml Intake Oral 120 ml 120 ml IV Total 110 ml # Voids 1 2 Laboratory Tests 08/29/16 06:47: Thyroid Stimulating Hormone (TSH) 1.370, Free Thyroxine 1.10 08/29/16 06:54: Urine Color Yellow, Urine Appearance Clear, Urine pH 5, Urine Specific [place] 1.025, Urine Protein Negative, Urine Glucose (UA) Negative, Urine Ketones Negative, Urine Occult Blood Negative, Urine Nitrite Negative, Urine Bilirubin Negative, Urine Urobilinogen Normal, Urine Leukocyte Esterase 1+H, Urine RBC 0-2 , Urine WBC 2-4, Urine Squamous Epithelial Cells Few, Urine Bacteria Few Height (Feet): 5 Height (Inches): 5.00 Weight (Pounds): 96 Objective General: alert, cooperative, no distress, appears stated age Head: normocephalic, without obvious abnormality, atraumatic Eyes: conjunctivae/corneas clear. PERRL, EOM's intact Throat: lips, mucosa, and tongue normal. MMM Neck: supple, symmetrical, trachea midline, and no JVD Lungs: clear to auscultation bilaterally Heart: regular rate and rhythm, S1, S2 normal, no murmur, click, rub or gallop Abdomen: soft, non-tender, non-distended, bowel sounds normal; no masses or organomegaly Extremities: LLE erythema, excoriation, venous stasis, tenderness, no induration /fluctuance Pulses: 2+ and symmetric Skin: skin color, texture, turgor normal; no rashes or lesions Neurologic: grossly normal, no focal deficits CARLOS PONCE Aug 29, 2016 16:42
--- NOTE | 2016-08-29 16:52 | Infectious Diseases Prog Note ---
Assessment/Plan Assessment/Plan Full consult dictated: A) 1) left leg cellulitis and gram + left leg wound infection, hx mrsa per patient 2) pmh noted 3) allergies - negative P) 1) vancomycin 2) check wound culture final and labs 3) wound care per protocol 4) will f/u Subjective Constitutional: Denies: fever Respiratory: Denies: shortness of breath Cardiovascular: Denies: chest pain Gastrointestinal/Abdominal: Denies: diarrhea, nausea, vomiting Genitourinary: Denies: nocturia Neurologic: Denies: headache Skin: Reports: ulcer, Denies: rash Musculoskeletal: Reports: other - left leg pain Allergies: Coded Allergies: No Known Allergies (Unverified , 08/27/16) Objective Vital Signs Last 24 Hour Vital Signs Date Time Temp Pulse Resp B/P Pulse Ox O2 Delivery O2 Flow Rate FiO2 08/29/16 12:00 97.9 102 20 115/68 97 Room Air 08/29/16 09:48 88 138/72 08/29/16 08:00 97.0 88 21 138/72 92 Room Air 08/29/16 04:00 97.9 78 20 113/57 92 Room Air 2.0 08/29/16 04:00 83 08/29/16 00:00 97.9 72 18 121/62 92 Room Air 2.0 08/29/16 00:00 84 08/28/16 21:30 86 117/58 08/28/16 20:03 98.1 86 18 117/58 95 Room Air 2.0 08/28/16 20:00 83 Height (Feet): 5 Height (Inches): 5.00 Weight (Pounds): 96 General Appearance: no acute distress HEENT: normocephalic, atraumatic, anicteric, mucous membranes moist, PERRL Respiratory/Chest: lungs clear, normal breath sounds, no respiratory distress, no accessory muscle use Cardiovascular: normal rate, regular rhythm, no gallop/murmur, no JVD Abdomen: normal bowel sounds, soft, non tender, no organomegaly, non distended Genitourinary: other - no mustafa Skin: no rash Neurologic/Psychiatric: 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 Complete 08/28/16 02:00 Ankle Left Gram Stain - Final Resulted 08/28/16 02:00 Wound Culture - Preliminary Gram Positive Cocci Resulted Laboratory Tests Test 08/29/16 06:47 08/29/16 06:54 Thyroid Stimulating Hormone (TSH) 1.370 uIU/mL (0.300-4.500) Free Thyroxine 1.10 ng/dL (0.86-1.85) Urine Color Yellow Urine Appearance Clear Urine pH 5 (4.5-8.0) Urine Specific [place] 1.025 (1.005-1.035) Urine Protein Negative (NEGATIVE) Urine Glucose (UA) Negative (NEGATIVE) Urine Ketones Negative (NEGATIVE) Urine Occult Blood Negative (NEGATIVE) Urine Nitrite Negative (NEGATIVE) Urine Bilirubin Negative (NEGATIVE) Urine Urobilinogen Normal MG/DL (0.0-1.0) Urine Leukocyte Esterase 1+ (NEGATIVE) H Urine RBC 0-2 /HPF (0 - 2) Urine WBC 2-4 /HPF (0 - 2) Urine Squamous Epithelial Cells Few /LPF (NONE/OCC) Urine Bacteria Few /HPF (NONE) Current Medications Medications (Trade) Dose Ordered Sig/[place] Route PRN Reason Start Time Stop Time Status Last Admin Dose Admin Aspirin (Ecotrin) 325 mg DAILY ORAL 08/29/16 09:00 09/28/16 08:59 Atenolol (Tenormin) 25 mg Q12HR ORAL 08/28/16 09:00 09/27/16 08:59 08/29/16 09:48 Heparin Sodium (Porcine) 5000 units 5,000 units EVERY 12 HOURS SUBQ 08/28/16 21:00 09/27/16 20:59 08/29/16 09:51 Morphine Sulfate (Morphine Sulfate) 2 mg Q3H PRN IM PAIN 4-10 08/28/16 06:30 09/04/16 06:29 08/29/16 09:53 Vancomycin HCl (Vanco rx to dose) 1 ea DAILY PRN MISC Per rx protocol 08/28/16 10:45 09/27/16 10:44 Vancomycin HCl/ Dextrose (Vancomycin/D5W) 110 ml @ 110 mls/hr Q24H IVPB 08/28/16 22:00 09/02/16 21:59 08/28/16 22:06 LUKAS STEVENSON Aug 29, 2016 16:52
[2016-08-29] MEDS ORDERED: NS 275ml ONE (17:04)
[2016-08-29] MEDS ORDERED: Tubing IV Secondary IV ONE (17:04)
--- NOTE | 2016-08-29 17:47 | Cardiac Electrophysiology PN ---
Assessment/Plan Assessment/Plan (1) Atrial fibrillation with rapid ventricular response. Rate controlled on Atenolol. Off anticoagulation per patient request and bleeding foot ulcer. (2) Cellulitis of left ankle on iv antibiotics. Subjective Subjective Still has severe pain at site of foot cellulitis. No chest pain or SOB.Remained in controlled fib. Objective Last 24 Hour Vital Signs Date Time Temp Pulse Resp B/P Pulse Ox O2 Delivery O2 Flow Rate FiO2 08/29/16 16:00 97.6 78 21 130/65 94 Room Air 08/29/16 12:00 97.9 102 20 115/68 97 Room Air 08/29/16 09:48 88 138/72 08/29/16 08:00 97.0 88 21 138/72 92 Room Air 08/29/16 04:00 97.9 78 20 113/57 92 Room Air 2.0 08/29/16 04:00 83 08/29/16 00:00 97.9 72 18 121/62 92 Room Air 2.0 08/29/16 00:00 84 08/28/16 21:30 86 117/58 08/28/16 20:03 98.1 86 18 117/58 95 Room Air 2.0 08/28/16 20:00 83 Intake and Output 08/28/16 08/29/16 19:00 07:00 Intake Total 120 ml 230 ml Balance 120 ml 230 ml Intake Oral 120 ml 120 ml IV Total 110 ml # Voids 1 2 Laboratory Tests Test 08/29/16 06:47 08/29/16 06:54 Thyroid Stimulating Hormone (TSH) 1.370 uIU/mL (0.300-4.500) Free Thyroxine 1.10 ng/dL (0.86-1.85) Urine Color Yellow Urine Appearance Clear Urine pH 5 (4.5-8.0) Urine Specific [place] 1.025 (1.005-1.035) Urine Protein Negative (NEGATIVE) Urine Glucose (UA) Negative (NEGATIVE) Urine Ketones Negative (NEGATIVE) Urine Occult Blood Negative (NEGATIVE) Urine Nitrite Negative (NEGATIVE) Urine Bilirubin Negative (NEGATIVE) Urine Urobilinogen Normal MG/DL (0.0-1.0) Urine Leukocyte Esterase 1+ (NEGATIVE) H Urine RBC 0-2 /HPF (0 - 2) Urine WBC 2-4 /HPF (0 - 2) Urine Squamous Epithelial Cells Few /LPF (NONE/OCC) Urine Bacteria Few /HPF (NONE) Microbiology Date/Time Source Procedure Growth Status 08/27/16 19:38 Blood Blood Culture - Preliminary NO GROWTH AFTER 24 HOURS Resulted 08/27/16 19:30 Blood Blood Culture - Preliminary NO GROWTH AFTER 24 HOURS Resulted 08/27/16 19:35 Nasal Nares MRSA Culture - Final NO METHICILLIN RESISTANT STAPH AUREUS... Complete 08/28/16 02:00 Ankle Left Gram Stain - Final Resulted 08/28/16 02:00 Wound Culture - Preliminary Gram Positive Cocci Resulted Objective Head: normocephalic, without obvious abnormality, atraumatic Neck: no JVD Lungs: clear to auscultation bilaterally Heart: Irregular rate and rhythm, no murmur, click, rub or gallop Abdomen: soft, non-tender, non-distended, bowel sounds normal; no masses or organomegaly Extremities: LLE erythema, excoriation, venous stasis, tenderness, CHELY DAILY Aug 29, 2016 17:47
--- NOTE | 2016-08-29 18:27 | Consultation ---
Consult Note Consult Note DATE OF CONSULTATION: 08/29/16 CONSULTING PHYSICIAN: Yoshi Flores DPM COVERING FOR: Jose Wood DPM REASON FOR CONSULT: Left leg cellulitis HISTORY OF PRESENT ILLNESS: Patient states she has had a chronic left leg ulcer after a table fell on her leg in January 2016. She was being treated by Dr David for wound care and states that the wound was slowly improving. She was evaluated at [facility] and was noted to have cellulitis of the left leg along with open wounds. Therefore, she was instructed to present to the emergency room in order to be admitted. Patient states that the leg is painful. No reports of nausea, vomiting, fevers, or chills ALLERGIES: No known PAST MEDICAL HISTORY: AFIB, left leg ulcer SOCIAL HISTORY: Patient lives at home alone. 2 years ago. She has one daughter locally but states she is very busy. Denies tobacco, alcohol, or illicit drug use FAMILY HISTORY: No pertinent findings Last 24 Hour Vital Signs Date Time Temp Pulse Resp B/P Pulse Ox O2 Delivery O2 Flow Rate FiO2 08/29/16 16:00 97.6 78 21 130/65 94 Room Air 08/29/16 12:00 97.9 102 20 115/68 97 Room Air 08/29/16 09:48 88 138/72 08/29/16 08:00 97.0 88 21 138/72 92 Room Air 08/29/16 04:00 97.9 78 20 113/57 92 Room Air 2.0 08/29/16 04:00 83 08/29/16 00:00 97.9 72 18 121/62 92 Room Air 2.0 08/29/16 00:00 84 08/28/16 21:30 86 117/58 08/28/16 20:03 98.1 86 18 117/58 95 Room Air 2.0 08/28/16 20:00 83 Laboratory Tests Test 08/29/16 06:47 08/29/16 06:54 Thyroid Stimulating Hormone (TSH) 1.370 uIU/mL (0.300-4.500) Free Thyroxine 1.10 ng/dL (0.86-1.85) Urine Color Yellow Urine Appearance Clear Urine pH 5 (4.5-8.0) Urine Specific Sunset 1.025 (1.005-1.035) Urine Protein Negative (NEGATIVE) Urine Glucose (UA) Negative (NEGATIVE) Urine Ketones Negative (NEGATIVE) Urine Occult Blood Negative (NEGATIVE) Urine Nitrite Negative (NEGATIVE) Urine Bilirubin Negative (NEGATIVE) Urine Urobilinogen Normal MG/DL (0.0-1.0) Urine Leukocyte Esterase 1+ (NEGATIVE) H Urine RBC 0-2 /HPF (0 - 2) Urine WBC 2-4 /HPF (0 - 2) Urine Squamous Epithelial Cells Few /LPF (NONE/OCC) Urine Bacteria Few /HPF (NONE) Microbiology Date/Time Source Procedure Growth Status 08/27/16 19:38 Blood Blood Culture - Preliminary NO GROWTH AFTER 24 HOURS Resulted 08/27/16 19:35 Nasal Nares MRSA Culture - Final NO METHICILLIN RESISTANT STAPH AUREUS... Complete 08/28/16 02:00 Ankle Left Gram Stain - Final Resulted 08/28/16 02:00 Wound Culture - Preliminary Gram Positive Cocci Resulted Physical exam: DERM: Left lower leg with full thickness ulcers at the posterior medial aspect with a fibrotic base. Patient has multiple other excoriations with serous drainage. Surrounding erythema and edema. Bilateral legs with hyperpigmentation NEURO: Sensation in tact to light touch. Pain with periwound palpation VASC: Left foot pedal pulses are difficult to palpate. Right foot pedal pulses are palpable MSK: Muscle strength appropriate for age Assessment/Plan Left leg cellulitis with acute exacerbation of chronic ulcers along with small multiple excoriations. - Start antibiotics per infectious disease specialist recs - Start daily dressing changes with topical antibiotic - Ordering vascular studies - Cultures taken. Follow up results Yoshi Flores DPM Aug 29, 2016 18:27
[2016-08-29 20:00] VITALS: BP 133/64
[2016-08-29] MEDS: Vancomycin 500mg/D5W 110ml IVPB SCH ×2 (22:14)
[2016-08-30] VITALS (7 sets, daily range): BP systolic 111–145; BP diastolic 64–81
--- NOTE | 2016-08-30 04:00 | Consultation ---
DATE OF CONSULTATION: 08/29/2016 INFECTIOUS DISEASES CONSULTATION ATTENDING PHYSICIAN: Walter Cid M.D. REASON FOR CONSULTATION: Left leg infected wound and left leg cellulitis. CHIEF COMPLAINT: The patient's chief complaint coming in to the hospital is lower extremity cellulitis. HISTORY OF PRESENT ILLNESS: This is a very pleasant 89-year-old female with a history of MRSA and soft tissue infection. The patient presents to [facility] with left leg swelling with the swelling consistent of cellulitis. She also has had left leg wound. She had a wound culture done yesterday, which has grown out gram-positive organism. The patient is on vancomycin. Infectious Disease consulted requested for further antibiotic management. MAR was noted. Orders were noted. Notes were reviewed. PAST MEDICAL HISTORY: The patient's past medical history includes the history of the following: The patient has a past medical history of atrial fibrillation, rapid ventricular response. She has a history of MRSA, soft tissue infection. She does also have a history of hypertension in addition to atrial fibrillation. No history of diabetes. MEDICATIONS: Upon reviewing the MAR, she is on the following medications. She is on aspirin, vancomycin, heparin, atenolol, and morphine. ALLERGIES: She has no known drug allergies. FAMILY HISTORY: Noncontributory. No mention of exposure to tuberculosis. SOCIAL HISTORY: Negative for smoking, alcohol or drug abuse. REVIEW OF SYSTEMS: Constitutional: The patient has generalized weakness and fatigue. No fevers, chills, or night sweats. Head And Neck: No thrush or dysphagia. Cardiac: No chest pain. Gastrointestinal: No nausea, vomiting, or diarrhea. Genitourinary: No Mccain. No dysuria or frequency. No hemoptysis or secretions. Pulmonary: No congestion or shortness of breath. Skin: No rash or itching. Extremities: Left leg pain. She has left leg redness and pain. Neurologic: No seizures. PHYSICAL EXAMINATION: GENERAL: Alert, responsive, and no acute distress. VITAL SIGNS: The patient's temperature is 97.6, pulse rate 78, respiratory rate 21, blood pressure 130/65, and saturation 94%. HEAD AND NECK: Oral exam, no thrush. Eye exam, no icterus. Normocephalic. No facial droop. No neck stiffness. HEART: Regular. No rubs, gallops, or murmur. Occasionally irregular. LUNGS: Clear bilaterally. No rhonchi or rales. ABDOMEN: Soft. Positive bowel sounds. Nontender. MUSCULOSKELETAL: No evidence of septic arthritis. Lower extremity examination, left leg she has a wound, secondary to cellulitis in the left leg and foot. Warmth and redness. SKIN: No rash. No dermatitis. PERIPHERAL VASCULAR: No gangrene. GENITOURINARY: No Mccain. LINES: Line site is without phlebitis. NEUROLOGIC: Intact. Nonfocal. LABORATORY AND DIAGNOSTIC DATA: White count 8.0, hemoglobin 10.4. Creatinine is 0.5. LFTs were noted. Wound cultures gram-positive organisms. Blood cultures are negative. Chest x-ray showed no evidence of pneumonia. No acute pulmonary disease. ASSESSMENT AND PLAN: 1. The patient has left leg input cellulitis and gram-positive left leg wound infection. 2. History of methicillin-resistant Staphylococcus aureus. Continue vancomycin. 3. Check final wound culture. 4. Wound care protocol. 5. We will await final wound culture results. Continue vancomycin and check creatinine on vancomycin. 6. Atrial fibrillation with rapid ventricular response. 7. The patient has been seen by commissary agent. 8. Hypertension. 9. Continue treatment per Dr. Cid and other consultants. 10. No history of diabetes. 11. Anemia. 12. No known allergies. 13. Social history is negative. 14. disorder. 15. Case discussed with Dr. Cid. Rubina Odom M.D. DR: RANDI JOB#: [id number] CC:
--- NOTE | 2016-08-30 06:30 | Consultation ---
DATE OF CONSULTATION: 08/29/2016 NOTE: "POOR AUDIO QUALITY" CONSULTING PHYSICIAN: Daniel Gale M.D. REFERRING PHYSICIAN: Walter Cid M.D. REASON FOR CONSULTATION: 1. Left lower extremity cellulitis. 2. Rule out underlying required. HISTORY OF PRESENT ILLNESS: This is an 89-year-old female with a past medical history of atrial fibrillation and is currently on metoprolol. She initially presented to [facility] for evaluation of ulcer in the eft lower extremity proximal femur against some furniture and developed a cut. She was seeing Harshil for wound care for an incision and drainage of the wound and has since not followed up with him. She was seen in an urgent care over the last few days. She was cultured did have some MRSA. The patient states that her leg has increased in pain and swelling over the last few days, currently on admission was 8/10. She denies shortness of breath, nausea, vomiting, or chest pain. ALLERGIES: No known allergies. MEDICATIONS: Please see list in chart for current medications. She is currently receiving vancomycin IV. PAST MEDICAL HISTORY: Includes cellulitis of the left ankle as well as atrial fibrillation with rapid ventricular response. REVIEW OF SYSTEMS: Negative except noted above. PHYSICAL EXAMINATION: GENERAL: The patient is lying in bed. She does not appear to be in distress. She is alert, awake and comfortable. HEENT: Normocephalic and atraumatic. Pupils are equal, round, and reactive to light. NECK: Supple. CHEST: Lungs clear to auscultation bilaterally. CARDIOVASCULAR: She has irregularly irregular heart rate. ABDOMEN: Soft, nontender, and nondistended. EXTREMITIES: Show right lower extremity and arms are within normal range. Left lower extremity shows cellulitis from the toes to the mid calf and area of ulceration on the medial aspect measuring about 2.5 x 5 x 3 cm with a layer of slough covering the wound. There does not appear to be anymore areas of fluctuance or underlying abscesses noted. Overall, appears to have limited cellulitis in the lower extremities, some edema to the foot. LABORATORY VALUES: White count is 1000, hematocrit 32.8, and platelet count of 217,000. ASSESSMENT AND PLAN: This is a pleasant 89-year-old female with a past medical history of left lower extremity wound, complicated by cellulitis and increasing over the last week or so. She has reportedly methicillin resistant Staphylococcus aureus. Infectious Disease is following the patient. She does not currently appear to have requirement for surgical drainage of the wound. My recommendation at this time is to continue with intravenous antibiotics per Infectious Disease recommendations as well as daily dressing with Xeroform, Kerlix wrap, and Sergio wrap and strict elevation of the left lower extremity. The patient will be followed closely by the plastic surgical team. Thank you very much for allowing me to participate in the care of this patient. Daniel Gale M.D. DR: FAITH JOB#: [id number] CC:
[2016-08-30 07:05] LABS: BASOPHILS % (AUTO) 0.8 % (0.0-2.0); EOSINOPHILS % (AUTO) 1.5 % (0.0-3.0); LYMPHOCYTES % (AUTO) 9.7 % (20.0-45.0); MEAN CORPUSCULAR VOLUME 100 FL (80-99); MEAN PLATELET VOLUME 7.9 FL (6.5-10.1); MONOCYTES % (AUTO) 11.6 % (1.0-10.0); NEUTROPHILS % (AUTO) 76.4 % (45.0-75.0); PLATELET COUNT 205 K/UL (150-450); RED BLOOD COUNT 3.47 M/UL (4.20-5.40); RED CELL DISTRIBUTION WIDTH 12.2 % (11.6-14.8); WHITE BLOOD COUNT 7.6 K/UL (4.8-10.8)
[2016-08-30 07:31] LABS: ANION GAP 10 (5-15); CALCIUM 9.1 mg/dL (8.6-10.2); CARBON DIOXIDE 29 mEQ/L (20-30); CHLORIDE 97 mEQ/L (98-107); CREATININE 0.4 mg/dL (0.5-0.9); HEMOLYSIS 0; POTASSIUM 4.2 mEQ/L (3.4-4.9); SODIUM 136 mEQ/L (135-145)
[2016-08-30] MEDS: Atenolol 25mg tab ORAL SCH ×2 (08:38→20:36)
[2016-08-30] MEDS: Aspirin EC 325mg tab ORAL SCH ×2 (08:38→09:00)
[2016-08-30] MEDS: Heparin 5000 units/ml inj SUBQ SCH ×2 (08:39→20:38)
[2016-08-30] MEDS: Morphine Sulfate 2mg/ml Inj IVP PRN ×2 (11:17→23:22)
--- NOTE | 2016-08-30 14:19 | Cardiac Electrophysiology PN ---
Assessment/Plan Assessment/Plan (1) Atrial fibrillation with rapid ventricular response. Rate controlled on Atenolol. Off anticoagulation per patient request and bleeding foot ulcer.Refuses even aspirin. (2) Cellulitis of left ankle on iv antibiotics. DW RN Subjective Subjective Pain at site of left foot cellulitis better after morphine. No chest pain or SOB.Remained in controlled fib.Had transient bradia with 3.6 second pause when she was nauseated. Objective Last 24 Hour Vital Signs Date Time Temp Pulse Resp B/P Pulse Ox O2 Delivery O2 Flow Rate FiO2 08/30/16 11:50 88 08/30/16 11:16 98.3 93 18 111/66 97 Room Air 08/30/16 08:38 95 145/81 08/30/16 07:42 90 08/30/16 07:35 98.1 95 18 145/81 93 Room Air 08/30/16 04:00 97.8 91 24 127/74 95 Room Air 08/30/16 04:00 74 08/30/16 00:00 93 08/30/16 00:00 98.7 112 24 133/64 95 08/29/16 23:07 98.7 08/29/16 21:53 91 114/67 08/29/16 20:00 98.7 112 24 133/64 95 08/29/16 20:00 97 08/29/16 16:00 97.6 78 21 130/65 94 Room Air 08/29/16 16:00 102 Intake and Output 08/29/16 08/30/16 19:00 07:00 Intake Total 400 ml 110 ml Output Total 400 ml Balance 400 ml -290 ml Intake Oral 400 ml IV Total 110 ml Output Urine Total 400 ml # Voids 1 Laboratory Tests Test 08/30/16 05:25 White Blood Count 7.6 K/UL (4.8-10.8) Red Blood Count 3.47 M/UL (4.20-5.40) L Hemoglobin 11.1 G/DL (12.0-16.0) L Hematocrit 34.7 % (37.0-47.0) L Mean Corpuscular Volume 100 FL (80-99) H Mean Corpuscular Hemoglobin 32.0 PG (27.0-31.0) H Mean Corpuscular Hemoglobin Concent 32.0 G/DL (32.0-36.0) Red Cell Distribution Width 12.2 % (11.6-14.8) Platelet Count 205 K/UL (150-450) Mean Platelet Volume 7.9 FL (6.5-10.1) Neutrophils (%) (Auto) 76.4 % (45.0-75.0) H Lymphocytes (%) (Auto) 9.7 % (20.0-45.0) L Monocytes (%) (Auto) 11.6 % (1.0-10.0) H Eosinophils (%) (Auto) 1.5 % (0.0-3.0) Basophils (%) (Auto) 0.8 % (0.0-2.0) Sodium Level 136 mEQ/L (135-145) Potassium Level 4.2 mEQ/L (3.4-4.9) Chloride Level 97 mEQ/L (98-107) L Carbon Dioxide Level 29 mEQ/L (20-30) Anion Gap 10 (5-15) Blood Urea Nitrogen 16 mg/dL (7-23) Creatinine 0.4 mg/dL (0.5-0.9) L Estimat Glomerular Filtration Rate mL/min (>60) Glucose Level 111 mg/dL (74-106) H Calcium Level 9.1 mg/dL (8.6-10.2) Microbiology Date/Time Source Procedure Growth Status 08/27/16 19:38 Blood Blood Culture - Preliminary NO GROWTH AFTER 48 HOURS Resulted 08/27/16 19:30 Blood Blood Culture - Preliminary NO GROWTH AFTER 48 HOURS Resulted 08/27/16 19:35 Nasal Nares MRSA Culture - Final NO METHICILLIN RESISTANT STAPH AUREUS... Complete 08/28/16 02:00 Ankle Left Gram Stain - Final Resulted 08/28/16 02:00 Wound Culture - Preliminary Staphylococcus Aureus - Mrsa Diphtheroids Resulted Objective Head: normocephalic, without obvious abnormality, atraumatic Neck: no JVD Lungs: clear to auscultation bilaterally Heart: Irregular rate and rhythm, no murmur, click, rub or gallop Abdomen: soft, non-tender, non-distended, bowel sounds normal; no masses or organomegaly Extremities: LLE erythema, excoriation, venous stasis, tenderness, CHELY DAILY Aug 30, 2016 14:19
--- NOTE | 2016-08-30 16:13 | General Progress Note ---
Assessment/Plan Problem List: (1) Cellulitis of left ankle Assessment & Plan: Cont IV abx per ID Apprec plastic surgery followup Wound care ICD Codes: L03.116 - Cellulitis of left lower limb SNOMED: 43635422 (2) Atrial fibrillation with rapid ventricular response Assessment & Plan: Cont rate control Apprec cardiology input Telemetry ICD Codes: I48.91 - Unspecified atrial fibrillation SNOMED: 871417788686511 Subjective Date patient seen: Aug 30, 2016 Time patient seen: 16:12 ROS Limited/Unobtainable: No Allergies: Coded Allergies: No Known Allergies (Unverified , 08/27/16) Subjective No acute overnight events, states leg pain is better today, no fevers/chills, seen yesterday by plastic surgery Objective Last 24 Hour Vital Signs Date Time Temp Pulse Resp B/P Pulse Ox O2 Delivery O2 Flow Rate FiO2 08/30/16 15:52 97.9 88 18 114/70 96 Room Air 08/30/16 11:50 88 08/30/16 11:16 98.3 93 18 111/66 97 Room Air 08/30/16 08:38 95 145/81 08/30/16 07:42 90 08/30/16 07:35 98.1 95 18 145/81 93 Room Air 08/30/16 04:00 97.8 91 24 127/74 95 Room Air 08/30/16 04:00 74 08/30/16 00:00 93 08/30/16 00:00 98.7 112 24 133/64 95 08/29/16 23:07 98.7 08/29/16 21:53 91 114/67 08/29/16 20:00 98.7 112 24 133/64 95 08/29/16 20:00 97 Intake and Output 08/29/16 08/30/16 19:00 07:00 Intake Total 400 ml 110 ml Output Total 400 ml Balance 400 ml -290 ml Intake Oral 400 ml IV Total 110 ml Output Urine Total 400 ml # Voids 1 Laboratory Tests 08/30/16 05:25: White Blood Count 7.6, Red Blood Count 3.47L, Hemoglobin 11.1L, Hematocrit 34.7L , Mean Corpuscular Volume 100H, Mean Corpuscular Hemoglobin 32.0H, Mean Corpuscular Hemoglobin Concent 32.0, Red Cell Distribution Width 12.2, Platelet Count 205, Mean Platelet Volume 7.9, Neutrophils (%) (Auto) 76.4H, Lymphocytes ( %) (Auto) 9.7L, Monocytes (%) (Auto) 11.6H, Eosinophils (%) (Auto) 1.5, Basophils (%) (Auto) 0.8, Sodium Level 136, Potassium Level 4.2, Chloride Level 97L, Carbon Dioxide Level 29, Anion Gap 10, Blood Urea Nitrogen 16, Creatinine 0.4L, Estimat Glomerular Filtration Rate , Glucose Level 111H, Calcium Level 9.1 Height (Feet): 5 Height (Inches): 5.00 Weight (Pounds): 96 Objective General: alert, cooperative, no distress, appears stated age Head: normocephalic, without obvious abnormality, atraumatic Eyes: conjunctivae/corneas clear. PERRL, EOM's intact Throat: lips, mucosa, and tongue normal. MMM Neck: supple, symmetrical, trachea midline, and no JVD Lungs: clear to auscultation bilaterally Heart: regular rate and rhythm, S1, S2 normal, no murmur, click, rub or gallop Abdomen: soft, non-tender, non-distended, bowel sounds normal; no masses or organomegaly Extremities: LLE erythema, excoriation, venous stasis, tenderness, no induration /fluctuance Pulses: 2+ and symmetric Skin: skin color, texture, turgor normal; no rashes or lesions Neurologic: grossly normal, no focal deficits CARLOS PONCE Aug 30, 2016 16:13
[2016-08-30] MEDS: Vancomycin 500mg/D5W 110ml IVPB SCH ×2 (22:00)
[2016-08-31] VITALS: BP 152/80
[2016-08-31] MEDS ORDERED: Vancomycin 750mg Inj IVPB ONE (02:05)
[2016-08-31] MEDS: Vancomycin 750mg/D5W 275ml IVPB SCH ×6 (03:50→23:33)
[2016-08-31 04:00] VITALS: BP 120/67
[2016-08-31 08:00] VITALS: BP 137/92
[2016-08-31] MEDS: Aspirin EC 325mg tab ORAL SCH (09:00)
[2016-08-31] MEDS: Atenolol 25mg tab ORAL SCH ×2 (09:11→20:51)
[2016-08-31] MEDS: Heparin 5000 units/ml inj SUBQ SCH ×2 (09:12→09:24)
--- NOTE | 2016-08-31 10:51 | General Progress Note ---
Assessment/Plan Problem List: (1) Cellulitis of left ankle Assessment & Plan: Cont IV abx per ID Apprec plastic surgery followup Wound care ICD Codes: L03.116 - Cellulitis of left lower limb SNOMED: 94121366 (2) Atrial fibrillation with rapid ventricular response Assessment & Plan: Cont rate control Apprec cardiology input Telemetry ICD Codes: I48.91 - Unspecified atrial fibrillation SNOMED: 032137823725197 Subjective Date patient seen: Aug 31, 2016 Time patient seen: 10:50 ROS Limited/Unobtainable: No Allergies: Coded Allergies: No Known Allergies (Unverified , 08/27/16) Subjective No acute overnight events, states leg pain is better today, no fevers/chills, no chest pain or dyspnea. Objective Last 24 Hour Vital Signs Date Time Temp Pulse Resp B/P Pulse Ox O2 Delivery O2 Flow Rate FiO2 08/31/16 09:11 91 137/92 08/31/16 08:00 97.0 91 16 137/92 95 Room Air 08/31/16 04:00 79 08/31/16 04:00 97.9 59 18 120/67 92 Room Air 08/31/16 03:50 98.2 08/31/16 00:00 98.2 102 20 152/80 94 Room Air 08/31/16 00:00 83 08/30/16 20:36 94 114/70 08/30/16 20:00 94 08/30/16 20:00 97.9 98 20 128/67 96 Room Air 08/30/16 19:04 94 08/30/16 15:52 97.9 88 18 114/70 96 Room Air 08/30/16 11:50 88 08/30/16 11:16 98.3 93 18 111/66 97 Room Air Intake and Output 08/30/16 08/31/16 19:00 07:00 Intake Total 540 ml 366.416 ml Output Total 300 ml Balance 240 ml 366.416 ml Intake Oral 540 ml IV Total 366.416 ml Output Urine Total 300 ml # Voids 3 # Bowel Movements 1 1 Laboratory Tests 08/30/16 21:27: Vancomycin Level Trough 2.9L Height (Feet): 5 Height (Inches): 5.00 Weight (Pounds): 96 Objective General: alert, cooperative, no distress, appears stated age Head: normocephalic, without obvious abnormality, atraumatic Eyes: conjunctivae/corneas clear. PERRL, EOM's intact Throat: lips, mucosa, and tongue normal. MMM Neck: supple, symmetrical, trachea midline, and no JVD Lungs: clear to auscultation bilaterally Heart: regular rate and rhythm, S1, S2 normal, no murmur, click, rub or gallop Abdomen: soft, non-tender, non-distended, bowel sounds normal; no masses or organomegaly Extremities: LLE erythema, excoriation, venous stasis, tenderness, no induration /fluctuance Pulses: 2+ and symmetric Skin: skin color, texture, turgor normal; no rashes or lesions Neurologic: grossly normal, no focal deficits CARLOS PONCE Aug 31, 2016 10:51
[2016-08-31 12:00] VITALS: BP 139/59
--- NOTE | 2016-08-31 14:54 | Cardiac Electrophysiology PN ---
Assessment/Plan Assessment/Plan 1. Atrial fibrillation with rapid ventricular response. Rate controlled on Atenolol. Refuses all anticoagulations including aspirin and even SQ heparin. 2. Cellulitis of left ankle on iv antibiotics. 3. MRSA wound On Vancomycin DW RN Subjective Subjective Comfortable in NAD. No chest pain or SOB.Remained in controlled fib.No further bradycardia when she was nauseated.No further today. Objective Last 24 Hour Vital Signs Date Time Temp Pulse Resp B/P Pulse Ox O2 Delivery O2 Flow Rate FiO2 08/31/16 12:00 96.8 92 22 139/59 96 Room Air 08/31/16 09:11 91 137/92 08/31/16 08:00 97.0 91 16 137/92 95 Room Air 08/31/16 04:00 79 08/31/16 04:00 97.9 59 18 120/67 92 Room Air 08/31/16 03:50 98.2 08/31/16 00:00 98.2 102 20 152/80 94 Room Air 08/31/16 00:00 83 08/30/16 20:36 94 114/70 08/30/16 20:00 94 08/30/16 20:00 97.9 98 20 128/67 96 Room Air 08/30/16 19:04 94 08/30/16 15:52 97.9 88 18 114/70 96 Room Air Intake and Output 08/30/16 08/31/16 19:00 07:00 Intake Total 540 ml 366.416 ml Output Total 300 ml Balance 240 ml 366.416 ml Intake Oral 540 ml IV Total 366.416 ml Output Urine Total 300 ml # Voids 3 # Bowel Movements 1 1 Laboratory Tests Test 08/30/16 21:27 Vancomycin Level Trough 2.9 ug/mL (5.0-12.0) L Objective Neck: no JVD Lungs: clear to auscultation bilaterally Heart: Irregular rate and rhythm, no murmur, click, rub or gallop Abdomen: soft, non-tender, non-distended, bowel sounds normal; no masses or organomegaly Extremities: LLE erythema, excoriation, tenderness, CHELY DAILY Aug 31, 2016 14:54
[2016-08-31] MEDS ORDERED: Tubing IV Secondary IV ONE (15:08)
--- NOTE | 2016-08-31 15:37 | Infectious Diseases Prog Note ---
Assessment/Plan Assessment/Plan ASSESSMENT AND PLAN: 1. The patient has left leg mrsa wound infection and cellulitis, r/o osteo - continue vancomycin iv - clinically better - MRI ordered to rule out osteomyelitis - watch labs - if MRI negative for osteo than can discharge on po bactrim for one week - plastic surgery and podiatry notes reviewed - d/w Dr. Cid 2. methicillin-resistant Staphylococcus aureus colonization 3. Check final wound culture. 4. Wound care protocol. 5. Watch labs 6. Atrial fibrillation with rapid ventricular response. 7. The patient has been seen by grouter helper. 8. Hypertension. 9. Continue treatment per Dr. Cid and other consultants. 10. No history of diabetes. 11. Anemia. 12. No known allergies. 13. Social history is negative. 14. vascular w/u in progress 15. Case discussed with Dr. Cid. Subjective Constitutional: Denies: fever HEENT: Denies: congestion Respiratory: Denies: shortness of breath Cardiovascular: Denies: chest pain Gastrointestinal/Abdominal: Denies: diarrhea, nausea, vomiting Genitourinary: Reports: other - no mustafa Neurologic: Denies: headache Psychiatric: Denies: depression Skin: Denies: rash Hematologic: Denies: bleeding Musculoskeletal: Denies: pain Allergies: Coded Allergies: No Known Allergies (Unverified , 08/27/16) Objective Vital Signs Last 24 Hour Vital Signs Date Time Temp Pulse Resp B/P Pulse Ox O2 Delivery O2 Flow Rate FiO2 08/31/16 12:00 91 08/31/16 12:00 96.8 92 22 139/59 96 Room Air 08/31/16 09:11 91 137/92 08/31/16 08:00 79 08/31/16 08:00 97.0 91 16 137/92 95 Room Air 08/31/16 04:00 79 08/31/16 04:00 97.9 59 18 120/67 92 Room Air 08/31/16 03:50 98.2 08/31/16 00:00 98.2 102 20 152/80 94 Room Air 08/31/16 00:00 83 08/30/16 20:36 94 114/70 08/30/16 20:00 94 08/30/16 20:00 97.9 98 20 128/67 96 Room Air 08/30/16 19:04 94 08/30/16 15:52 97.9 88 18 114/70 96 Room Air Height (Feet): 5 Height (Inches): 5.00 Weight (Pounds): 96 General Appearance: no acute distress HEENT: normocephalic, atraumatic, anicteric, mucous membranes moist, PERRL, EOMI, pharynx normal, supple, no JVD Respiratory/Chest: lungs clear, normal breath sounds, no respiratory distress, no accessory muscle use Cardiovascular: normal rate, regular rhythm, no gallop/murmur, no JVD Abdomen: normal bowel sounds, soft, non tender, no organomegaly, non distended Genitourinary: other - no mustafa Extremities: no cyanosis, other - right leg wound stable Skin: no rash Neurologic/Psychiatric: [employer] [place]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 Complete 08/28/16 02:00 Ankle Left Gram Stain - Final Complete 08/28/16 02:00 Wound Culture - Final Staphylococcus Aureus - Mrsa Diphtheroids Complete Labs Test 08/29/16 06:47 08/29/16 06:54 08/30/16 05:25 08/30/16 21:27 Thyroid Stimulating Hormone (TSH) 1.370 uIU/mL (0.300-4.500) Free Thyroxine 1.10 ng/dL (0.86-1.85) Urine Color Yellow Urine Appearance Clear Urine pH 5 (4.5-8.0) Urine Specific [place] 1.025 (1.005-1.035) Urine Protein Negative (NEGATIVE) Urine Glucose (UA) Negative (NEGATIVE) Urine Ketones Negative (NEGATIVE) Urine Occult Blood Negative (NEGATIVE) Urine Nitrite Negative (NEGATIVE) Urine Bilirubin Negative (NEGATIVE) Urine Urobilinogen Normal MG/DL (0.0-1.0) Urine Leukocyte Esterase 1+ (NEGATIVE) Urine RBC 0-2 /HPF (0 - 2) Urine WBC 2-4 /HPF (0 - 2) Urine Squamous Epithelial Cells Few /LPF (NONE/OCC) Urine Bacteria Few /HPF (NONE) White Blood Count 7.6 K/UL (4.8-10.8) Red Blood Count 3.47 M/UL (4.20-5.40) Hemoglobin 11.1 G/DL (12.0-16.0) Hematocrit 34.7 % (37.0-47.0) Mean Corpuscular Volume 100 FL (80-99) Mean Corpuscular Hemoglobin 32.0 PG (27.0-31.0) Mean Corpuscular Hemoglobin Concent 32.0 G/DL (32.0-36.0) Red Cell Distribution Width 12.2 % (11.6-14.8) Platelet Count 205 K/UL (150-450) Mean Platelet Volume 7.9 FL (6.5-10.1) Neutrophils (%) (Auto) 76.4 % (45.0-75.0) Lymphocytes (%) (Auto) 9.7 % (20.0-45.0) Monocytes (%) (Auto) 11.6 % (1.0-10.0) Eosinophils (%) (Auto) 1.5 % (0.0-3.0) Basophils (%) (Auto) 0.8 % (0.0-2.0) Sodium Level 136 mEQ/L (135-145) Potassium Level 4.2 mEQ/L (3.4-4.9) Chloride Level 97 mEQ/L (98-107) Carbon Dioxide Level 29 mEQ/L (20-30) Anion Gap 10 (5-15) Blood Urea Nitrogen 16 mg/dL (7-23) Creatinine 0.4 mg/dL (0.5-0.9) Estimat Glomerular Filtration Rate mL/min (>60) Glucose Level 111 mg/dL (74-106) Calcium Level 9.1 mg/dL (8.6-10.2) Vancomycin Level Trough 2.9 ug/mL (5.0-12.0) Laboratory Tests Test 08/30/16 21:27 Vancomycin Level Trough 2.9 ug/mL (5.0-12.0) L Current Medications Medications (Trade) Dose Ordered Sig/Salome Route PRN Reason Start Time Stop Time Status Last Admin Dose Admin Aspirin (Ecotrin) 325 mg DAILY ORAL 08/29/16 09:00 09/28/16 08:59 Atenolol (Tenormin) 25 mg Q12HR ORAL 08/28/16 09:00 09/27/16 08:59 08/31/16 09:11 Heparin Sodium (Porcine) (Heparin 5000 units/ml) 5,000 units EVERY 12 HOURS SUBQ 08/28/16 21:00 09/27/16 20:59 08/30/16 20:38 Morphine Sulfate 2 mg 2 mg Q3H PRN IVP PAIN 4-10 08/30/16 12:30 09/06/16 12:29 08/30/16 23:22 Mupirocin (Bactroban Oint) 1 applic DAILY TOPIC 08/30/16 09:00 09/04/16 08:59 08/31/16 09:11 Vancomycin HCl (Vanco rx to dose) 1 ea DAILY PRN MISC Per rx protocol 08/28/16 10:45 09/27/16 10:44 Vancomycin HCl/ Dextrose (Vancomycin/D5W) 275 ml @ 183.708 mls/hr Q12H IVPB 08/30/16 23:30 09/04/16 23:29 08/31/16 12:03 LUKAS STEVENSON Aug 31, 2016 15:37
[2016-08-31 16:00] VITALS: BP 145/93
[2016-08-31 20:00] VITALS: BP 147/88
[2016-09-01] VITALS: BP 144/83
[2016-09-01 04:00] VITALS: BP 135/77
[2016-09-01 08:00] VITALS: BP 151/88
[2016-09-01 08:00] LABS: BASOPHILS % (AUTO) 0.8 % (0.0-2.0); EOSINOPHILS % (AUTO) 3.2 % (0.0-3.0); LYMPHOCYTES % (AUTO) 11.9 % (20.0-45.0); MEAN CORPUSCULAR HEMOGLOBIN 32.4 PG (27.0-31.0); MEAN CORPUSCULAR HGB CONC 32.7 G/DL (32.0-36.0); MEAN CORPUSCULAR VOLUME 99 FL (80-99); MEAN PLATELET VOLUME 8.3 FL (6.5-10.1); MONOCYTES % (AUTO) 13.7 % (1.0-10.0); NEUTROPHILS % (AUTO) 70.5 % (45.0-75.0); PLATELET COUNT 237 K/UL (150-450); RED BLOOD COUNT 3.52 M/UL (4.20-5.40); RED CELL DISTRIBUTION WIDTH 12.4 % (11.6-14.8); WHITE BLOOD COUNT 7.1 K/UL (4.8-10.8)
[2016-09-01 08:10] LABS: ANION GAP 9 (5-15); CALCIUM 8.6 mg/dL (8.6-10.2); CARBON DIOXIDE 29 mEQ/L (20-30); CHLORIDE 98 mEQ/L (98-107); CREATININE 0.5 mg/dL (0.5-0.9); HEMOLYSIS 1; POTASSIUM 4.1 mEQ/L (3.4-4.9); SODIUM 136 mEQ/L (135-145)
[2016-09-01] MEDS: Heparin 5000 units/ml inj SUBQ SCH ×2 (09:00→21:00)
[2016-09-01] MEDS: Aspirin EC 325mg tab ORAL SCH (09:00)
[2016-09-01] MEDS: Atenolol 25mg tab ORAL SCH ×2 (10:00→21:58)
[2016-09-01 12:15] VITALS: BP 150/96
--- NOTE | 2016-09-01 14:37 | General Progress Note ---
Assessment/Plan Problem List: (1) Cellulitis of left ankle Assessment & Plan: Cont IV abx per ID Apprec plastic surgery followup Wound care ICD Codes: L03.116 - Cellulitis of left lower limb SNOMED: 12499376 (2) Atrial fibrillation with rapid ventricular response Assessment & Plan: Cont rate control, pt declines any form of anticoagulation including aspirin Apprec cardiology input dc Telemetry ICD Codes: I48.91 - Unspecified atrial fibrillation SNOMED: [id number] Subjective Date patient seen: Sep 01, 2016 Time patient seen: 14:36 ROS Limited/Unobtainable: No Allergies: Coded Allergies: No Known Allergies (Unverified , 08/27/16) Subjective No acute overnight events, states leg pain is better today, no fevers/chills, no chest pain or dyspnea. Objective Last 24 Hour Vital Signs Date Time Temp Pulse Resp B/P Pulse Ox O2 Delivery O2 Flow Rate FiO2 09/01/16 12:15 97.0 99 20 150/96 95 Room Air 09/01/16 10:00 96 151/88 09/01/16 08:00 98.1 96 20 151/88 93 Room Air 09/01/16 04:00 97.9 97 20 135/77 92 Room Air 09/01/16 00:00 98.1 103 18 144/83 95 Room Air 09/01/16 00:00 86 08/31/16 20:51 92 147/88 08/31/16 20:00 92 08/31/16 20:00 97.0 92 21 147/88 96 Room Air 08/31/16 16:00 97.2 83 20 145/93 95 Room Air 08/31/16 16:00 86 Intake and Output 08/31/16 09/01/16 19:00 07:00 Intake Total 367.416 ml 395.000 ml Balance 367.416 ml 395.000 ml Intake Oral 120 ml IV Total 367.416 ml 275.000 ml # Voids 5 4 # Bowel Movements 1 1 Laboratory Tests 09/01/16 07:40: White Blood Count 7.1, Red Blood Count 3.52L, Hemoglobin 11.4L, Hematocrit 34.9L , Mean Corpuscular Volume 99, Mean Corpuscular Hemoglobin 32.4H, Mean Corpuscular Hemoglobin Concent 32.7, Red Cell Distribution Width 12.4, Platelet Count 237, Mean Platelet Volume 8.3, Neutrophils (%) (Auto) 70.5, Lymphocytes (% ) (Auto) 11.9L, Monocytes (%) (Auto) 13.7H, Eosinophils (%) (Auto) 3.2H, Basophils (%) (Auto) 0.8, Sodium Level 136, Potassium Level 4.1, Chloride Level 98, Carbon Dioxide Level 29, Anion Gap 9, Blood Urea Nitrogen 11, Creatinine 0.5 , Estimat Glomerular Filtration Rate , Glucose Level 109H, Calcium Level 8.6 09/01/16 11:15: Vancomycin Level Trough 10.9 Height (Feet): 5 Height (Inches): 5.00 Weight (Pounds): 96 Objective General: alert, cooperative, no distress, appears stated age Head: normocephalic, without obvious abnormality, atraumatic Eyes: conjunctivae/corneas clear. PERRL, EOM's intact Throat: lips, mucosa, and tongue normal. MMM Neck: supple, symmetrical, trachea midline, and no JVD Lungs: clear to auscultation bilaterally Heart: regular rate and rhythm, S1, S2 normal, no murmur, click, rub or gallop Abdomen: soft, non-tender, non-distended, bowel sounds normal; no masses or organomegaly Extremities: LLE erythema, excoriation, venous stasis, tenderness, no induration /fluctuance Pulses: 2+ and symmetric Skin: skin color, texture, turgor normal; no rashes or lesions Neurologic: grossly normal, no focal deficits CARLOS PONCE Sep 01, 2016 14:37
[2016-09-01 16:13] VITALS: BP 149/92
--- NOTE | 2016-09-01 18:01 | Cardiac Electrophysiology PN ---
Assessment/Plan Assessment/Plan 1. Atrial fibrillation with rapid ventricular response. Rate controlled on Atenolol. Refuses all anticoagulations including aspirin and even SQ heparin. Understands the risk of stroke with atrial fib and still refusing 2. Cellulitis of left ankle on iv antibiotics. 3. MRSA wound On Vancomycin DW RN Subjective Subjective Comfortable in NAD. No chest pain or SOB.Remained in controlled fib. Objective Last 24 Hour Vital Signs Date Time Temp Pulse Resp B/P Pulse Ox O2 Delivery O2 Flow Rate FiO2 09/01/16 16:13 97.9 97 20 149/92 98 Room Air 09/01/16 12:15 97.0 99 20 150/96 95 Room Air 09/01/16 10:00 96 151/88 09/01/16 08:00 98.1 96 20 151/88 93 Room Air 09/01/16 04:00 97.9 97 20 135/77 92 Room Air 09/01/16 00:00 98.1 103 18 144/83 95 Room Air 09/01/16 00:00 86 08/31/16 20:51 92 147/88 08/31/16 20:00 92 08/31/16 20:00 97.0 92 21 147/88 96 Room Air Intake and Output 08/31/16 09/01/16 19:00 07:00 Intake Total 367.416 ml 395.000 ml Balance 367.416 ml 395.000 ml Intake Oral 120 ml IV Total 367.416 ml 275.000 ml # Voids 5 4 # Bowel Movements 1 1 Laboratory Tests Test 09/01/16 07:40 09/01/16 11:15 White Blood Count 7.1 K/UL (4.8-10.8) Red Blood Count 3.52 M/UL (4.20-5.40) L Hemoglobin 11.4 G/DL (12.0-16.0) L Hematocrit 34.9 % (37.0-47.0) L Mean Corpuscular Volume 99 FL (80-99) Mean Corpuscular Hemoglobin 32.4 PG (27.0-31.0) H Mean Corpuscular Hemoglobin Concent 32.7 G/DL (32.0-36.0) Red Cell Distribution Width 12.4 % (11.6-14.8) Platelet Count 237 K/UL (150-450) Mean Platelet Volume 8.3 FL (6.5-10.1) Neutrophils (%) (Auto) 70.5 % (45.0-75.0) Lymphocytes (%) (Auto) 11.9 % (20.0-45.0) L Monocytes (%) (Auto) 13.7 % (1.0-10.0) H Eosinophils (%) (Auto) 3.2 % (0.0-3.0) H Basophils (%) (Auto) 0.8 % (0.0-2.0) Sodium Level 136 mEQ/L (135-145) Potassium Level 4.1 mEQ/L (3.4-4.9) Chloride Level 98 mEQ/L (98-107) Carbon Dioxide Level 29 mEQ/L (20-30) Anion Gap 9 (5-15) Blood Urea Nitrogen 11 mg/dL (7-23) Creatinine 0.5 mg/dL (0.5-0.9) Estimat Glomerular Filtration Rate mL/min (>60) Glucose Level 109 mg/dL (74-106) H Calcium Level 8.6 mg/dL (8.6-10.2) Vancomycin Level Trough 10.9 ug/mL (5.0-12.0) Objective Neck: no JVD Lungs: clear to auscultation bilaterally Heart: Irregular rate and rhythm, no murmur, click, rub or gallop Abdomen: soft, non-tender, Extremities: LLE erythema better CHELY DAILY Sep 01, 2016 18:01
--- NOTE | 2016-09-01 19:04 | Cardiology Report ---
APPROVED REPORT EKG Measurement Heart [id number] Atrial fibrillation Voltage criteria for left ventricular hypertrophy Inferior infarct, age undetermined Abnormal ECG
[2016-09-01] MEDS: Vancomycin 750mg/D5W 275ml IVPB SCH ×2 (19:55)
[2016-09-01 20:00] VITALS: BP 143/87
[2016-09-02] VITALS: BP 116/60
[2016-09-02 04:08] VITALS: BP 141/71
[2016-09-02] MEDS: Vancomycin 750mg/D5W 275ml IVPB SCH ×2 (06:25)
[2016-09-02 08:00] VITALS: BP 140/72
[2016-09-02] MEDS: Heparin 5000 units/ml inj SUBQ SCH ×2 (09:00→09:20)
[2016-09-02] MEDS: Aspirin EC 325mg tab ORAL SCH ×2 (09:00→09:17)
[2016-09-02] MEDS: Atenolol 25mg tab ORAL SCH (09:18)
--- NOTE | 2016-09-02 10:09 | Cardiac Electrophysiology PN ---
Assessment/Plan Assessment/Plan 1. Atrial fibrillation with rapid ventricular response. Rate controlled on Atenolol. Refuses all anticoagulations including aspirin and even SQ heparin. Understands the risk of stroke with atrial fib and still refusing. Now refusing telemetry. 2. Cellulitis of left ankle on iv antibiotics. 3. MRSA wound On Vancomycin DW RN Subjective Subjective Comfortable in NAD. No chest pain or SOB.Remained in controlled fib.Very noncompliant. Refuses all anticoagulations and now even telemetry. Objective Last 24 Hour Vital Signs Date Time Temp Pulse Resp B/P Pulse Ox O2 Delivery O2 Flow Rate FiO2 09/02/16 09:18 71 140/72 09/02/16 08:00 98.1 71 18 140/72 97 Room Air 09/02/16 04:08 97.4 75 20 141/71 96 Room Air 09/02/16 00:00 97.2 99 18 116/60 99 Room Air 09/01/16 21:58 95 143/87 09/01/16 20:00 97.9 95 19 143/87 97 Room Air 09/01/16 16:13 97.9 97 20 149/92 98 Room Air 09/01/16 12:15 97.0 99 20 150/96 95 Room Air Intake and Output 09/01/16 09/02/16 19:00 07:00 Intake Total 820 ml 515.000 ml Output Total 400 ml Balance 820 ml 115.000 ml Intake Oral 820 ml 240 ml IV Total 275.000 ml Output Urine Total 400 ml # Voids 2 4 # Bowel Movements 1 Laboratory Tests Test 09/01/16 11:15 Vancomycin Level Trough 10.9 ug/mL (5.0-12.0) Objective Neck: no JVD Lungs: Clear to auscultation bilaterally Heart: Irregular rate and rhythm, no murmur, click, rub or gallop Abdomen: soft, non-tender, Extremities: LLE erythema better CHELY DAILY Sep 02, 2016 10:09
--- NOTE | 2016-09-02 10:59 | Diagnostic Imaging Report ---
Indication: 89-year-old nonhealing wound distal left lower leg Technique: MRI of the left tibia in the area of interest was imaged in a 1.5 Valeria magnet. Pulse sequences obtained include coronal T1 fast spin-echo, STIR, and multiple projections. Comparison: None Findings: There is subcutaneous edema demonstrated within the left leg particularly in the lower part of the left leg anteriorly. Bone marrow signal normal. There is no fluid correction fracture seen. The muscular compartments in the anterior and posterior left leg appear relatively normal. No gadolinium was given. Impression: Soft tissue swelling within subcutaneous space consistent with cellulitis. No abscess, intrafascial muscle infection/myositis or evidence of acute osteomyelitis.
[2016-09-02 11:41] VITALS: BP 149/85
[2016-09-02] MEDS ORDERED: BACTRIM DS TAB1 EAC1 ORAL (11:41)
[2016-09-02] MEDS ORDERED: NORCO 5-325 TA1 EAC1 ORAL (11:42)
--- NOTE | 2016-09-02 11:45 | Cardiology Report ---
APPROVED REPORT EXAM: Two-dimensional and M-mode echocardiogram with Doppler and color Doppler. INDICATION Arrhythmia M-Mode DIMENSIONS IVSd1.9 (0.7-1.1cm)Left Atrium (MM)5.3 (1.6-4.0cm) LVDd1.3 (3.5-5.6cm)Aortic Root1.8 (2.0-3.7cm) PWd1.0 (0.7-1.1cm)Aortic Cusp Exc.1.5 (1.5-2.0cm) LVDs0.7 (2.5-4.0cm) PWs0.8 cm Limited study. Patient requested to terminate exam early. Normal left ventricular chamber size, systolic function and wall motion. Aprical views not obtained. Left ventricular ejection fraction estimated to be 55 %. Mild left ventricular hypertrophy. Trivial pericardial effusion. Moderate left atrial enlargement. Right cardiac chamber sizes are within normal limits. Mild focal aortic valve sclerosis with adequate cusp excursion. Mildly thickened mitral valve leaflets with normal excursion. Mild mitral annulus and aortic root calcification. Pulmonic valve not visualized. Normal tricuspid valve structure. Subcostal views not obtained. A color flow and spectral Doppler study was performed and revealed: Trace aortic regurgitation. Mild to moderate mitral regurgitation. Mild tricuspid regurgitation.
--- NOTE | 2016-09-02 15:25 | Infectious Diseases Prog Note ---
Assessment/Plan Assessment/Plan ASSESSMENT AND PLAN: 1. The patient has left leg mrsa wound infection and cellulitis, r/o osteo - vancomycin iv - clinically better - MRI without osteo or abscess - watch labs - can discharge on bactrim x 5 days to complete abx course - plastic surgery and podiatry notes reviewed - d/w Dr. Cid 2. methicillin-resistant Staphylococcus aureus colonization 3. Check final wound culture. 4. Wound care protocol. 5. Watch labs 6. Atrial fibrillation with rapid ventricular response. 7. The patient has been seen by [facility]. 8. Hypertension. 9. Continue treatment per Dr. Cid and other consultants. 10. No history of diabetes. 11. Anemia. 12. No known allergies. 13. Social history is negative. 14. vascular w/u in progress 15. Case discussed with Dr. Cid. Subjective Constitutional: Denies: fever HEENT: Denies: congestion Respiratory: Denies: shortness of breath Cardiovascular: Denies: chest pain Gastrointestinal/Abdominal: Denies: diarrhea, nausea, vomiting Genitourinary: Reports: other - no mustafa Neurologic: Denies: headache Psychiatric: Denies: depression Skin: Denies: rash Hematologic: Denies: bleeding Musculoskeletal: Reports: pain - less left leg pain Allergies: Coded Allergies: No Known Allergies (Unverified , 08/27/16) Objective Vital Signs Last 24 Hour Vital Signs Date Time Temp Pulse Resp B/P Pulse Ox O2 Delivery O2 Flow Rate FiO2 09/02/16 11:41 97.0 92 19 149/85 96 Room Air 09/02/16 09:18 71 140/72 09/02/16 08:00 98.1 71 18 140/72 97 Room Air 09/02/16 04:08 97.4 75 20 141/71 96 Room Air 09/02/16 00:00 97.2 99 18 116/60 99 Room Air 09/01/16 21:58 95 143/87 09/01/16 20:00 97.9 95 19 143/87 97 Room Air 09/01/16 16:13 97.9 97 20 149/92 98 Room Air Height (Feet): 5 Height (Inches): 5.00 Weight (Pounds): 96 General Appearance: no acute distress HEENT: normocephalic, atraumatic, anicteric, mucous membranes moist, PERRL, EOMI, pharynx normal, supple, no JVD Respiratory/Chest: lungs clear, normal breath sounds, no respiratory distress, no accessory muscle use Cardiovascular: normal rate, regular rhythm, no gallop/murmur, no JVD Abdomen: normal bowel sounds, soft, non tender, no organomegaly, non distended Genitourinary: other - no mustafa Extremities: no cyanosis Skin: no rash 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 Complete 08/28/16 02:00 Ankle Left Gram Stain - Final Complete 08/28/16 02:00 Wound Culture - Final Staphylococcus Aureus - Mrsa Diphtheroids Complete Labs Test 08/30/16 21:27 09/01/16 07:40 09/01/16 11:15 Vancomycin Level Trough 2.9 ug/mL (5.0-12.0) 10.9 ug/mL (5.0-12.0) White Blood Count 7.1 K/UL (4.8-10.8) Red Blood Count 3.52 M/UL (4.20-5.40) Hemoglobin 11.4 G/DL (12.0-16.0) Hematocrit 34.9 % (37.0-47.0) Mean Corpuscular Volume 99 FL (80-99) Mean Corpuscular Hemoglobin 32.4 PG (27.0-31.0) Mean Corpuscular Hemoglobin Concent 32.7 G/DL (32.0-36.0) Red Cell Distribution Width 12.4 % (11.6-14.8) Platelet Count 237 K/UL (150-450) Mean Platelet Volume 8.3 FL (6.5-10.1) Neutrophils (%) (Auto) 70.5 % (45.0-75.0) Lymphocytes (%) (Auto) 11.9 % (20.0-45.0) Monocytes (%) (Auto) 13.7 % (1.0-10.0) Eosinophils (%) (Auto) 3.2 % (0.0-3.0) Basophils (%) (Auto) 0.8 % (0.0-2.0) Sodium Level 136 mEQ/L (135-145) Potassium Level 4.1 mEQ/L (3.4-4.9) Chloride Level 98 mEQ/L (98-107) Carbon Dioxide Level 29 mEQ/L (20-30) Anion Gap 9 (5-15) Blood Urea Nitrogen 11 mg/dL (7-23) Creatinine 0.5 mg/dL (0.5-0.9) Estimat Glomerular Filtration Rate mL/min (>60) Glucose Level 109 mg/dL (74-106) Calcium Level 8.6 mg/dL (8.6-10.2) Current Medications Medications (Trade) Dose Ordered Sig/Salome Route PRN Reason Start Time Stop Time Status Last Admin Dose Admin Aspirin (Ecotrin) 325 mg DAILY ORAL 08/29/16 09:00 09/28/16 08:59 Atenolol (Tenormin) 25 mg Q12HR ORAL 08/28/16 09:00 09/27/16 08:59 09/02/16 09:18 Heparin Sodium (Porcine) (Heparin 5000 units/ml) 5,000 units EVERY 12 HOURS SUBQ 08/28/16 21:00 09/27/16 20:59 08/30/16 20:38 Morphine Sulfate 2 mg 2 mg Q3H PRN IVP PAIN 4-10 08/30/16 12:30 09/06/16 12:29 08/30/16 23:22 Mupirocin (Bactroban Oint) 1 applic DAILY TOPIC 08/30/16 09:00 09/04/16 08:59 09/02/16 11:12 Vancomycin HCl (Vanco rx to dose) 1 ea DAILY PRN MISC Per rx protocol 08/28/16 10:45 09/27/16 10:44 Vancomycin HCl/ Dextrose (Vancomycin/D5W) 275 ml @ 183.708 mls/hr Q12H IVPB 09/01/16 18:00 09/06/16 17:59 09/02/16 06:25 LUKAS STEVENSON Sep 02, 2016 15:25
[2016-09-02 16:00] VITALS: BP 124/66
--- NOTE | 2016-09-02 18:43 | Discharge Summary ---
Discharge Summary Hospital Course Date of Admission Aug 27, 2016 at 20:43 Date of Discharge Sep 02, 2016 at 18:01 Admitting Diagnosis Lower Extremity cellulitis, atrial fibrillation Reason for Hospitalization: as above HPI Ainsley Lambert is a 89 year old female who was admitted on Aug 27, 2016 at 20:43 for Lower Extremities Cellulitis,Atrial Fibrillation Consultations ID Surgery Cardiology Procedures None Hospital Course 89 y/o female with chronic venous stasis, presented with LE cellulitis, seen by ID, started on IV abx, seen by plastic surgery, no intervention recommended, MRI was neg for osteomyelitis. Pt leg improved on IV abx and was finally dced hoe on PO abx with home health and wound care. She was also seen by cardiology for atrial fib, rate control continued, pt declined any form of anticoagulation Discharge Medications Continued Medications: Atenolol* (Tenormin*) 25 Mg Tablet 25 MG ORAL BID, TAB Hydrocodone Bit/Acetaminophen 5-325* ([place] 5-325 Tablet*) 1 Each Tablet 1 TAB ORAL Q6HR PRN for For Pain, #20 TAB Trimethoprim/Sulfamethoxazole 160/800* (Bactrim Ds Tablet*) 1 Each Tablet 1 TAB ORAL TWICE A DAY for 14 Days, TAB Discharge Condition Upon Discharge: stable Discharge Disposition Patient was discharged to Home with Home Health(06) Discharge Diagnoses: (1) Cellulitis (2) CARLOS Ness Sep 02, 2016 18:43
--- NOTE | 2016-09-03 07:53 | Diagnostic Imaging Report ---
APPROVED REPORT CPT Code: 27824 Symptoms Non-healing Ulcer : Left RIGHT LEG: Common femoral artery waveform analysis is within normal limits at rest. Color duplex sonography reveals patency of the superficial femoral, popliteal and tibial arteries. There is no evidence of stenosis or occlusion within these segments. Doppler tibial artery waveform analysis is compatible with minimal ischemia. LEFT LEG: Common femoral artery waveform analysis is within normal limits at rest. Color duplex sonography reveals patency of the superficial femoral, popliteal and tibial arteries. There is no evidence of stenosis or occlusion within these segments. Doppler tibial artery waveform analysis is compatible with moderate ischemia.
--- NOTE | 2016-09-03 07:56 | Diagnostic Imaging Report ---
APPROVED REPORT CPT Code: 07025 Present Symptoms Comments: Cellulitis BILATERAL: Imaging reveals a patent deep venous system bilaterally. There is no evidence of thrombus within the femoral, popliteal or tibial segments. The greater saphenous veins are also within normal limits. Doppler indicates normal spontaneous flow within these segments.
== END 2016-09-02 18:01 | disposition home health service (06) | DRG 603 ==
LOC: EDBD 19:27 → EMR 20:15 → 2E 20:43 → 4W 20:43 → UNDOADMIN 20:43 → EDBEDREQ 20:51 → 2E 08-29 23:09
DX: L03.116 Cellulitis of left lower limb (principal); L97.329 Non-pressure chronic ulcer of left ankle with unspecified severity; I48.91 Unspecified atrial fibrillation; Z68.1 Body mass index [BMI] 19.9 or less, adult; B95.62 Methicillin resistant Staphylococcus aureus infection as the cause of diseases classified elsewhere; I87.2 Venous insufficiency (chronic) (peripheral); I10 Essential (primary) hypertension
CPT/HCPCS: 36415; 71010; 80048; 80053; 80202; 81003; 82550; 82553; 83605; 84439; 84443; 84484; 85025; 85610; 85730; 87040; 87070; 87081; 87181; 87205; 93005; 93306; 93925; 93970; J2405

== ENCOUNTER 2016-09-18 12:31 | Outpatient (RCR) | payer MEDICARE ==
[~2016-09-18] VITALS: Ht 162.6 cm; Wt 43.5 kg
[~2016-09-18 12:31] MED LIST changes: +BACTRIM DS TAB1 EAC1 ORAL; +NORCO 5-325 TA1 EAC1 ORAL
== END 2016-10-16 | disposition home or self-care (01) ==
LOC: WCC 12:31
DX: L97.829 Non-pressure chronic ulcer of other part of left lower leg with unspecified severity (principal); L97.929 Non-pressure chronic ulcer of unspecified part of left lower leg with unspecified severity; I10 Essential (primary) hypertension; Z96.649 Presence of unspecified artificial hip joint
CPT/HCPCS: G0463 ×2

== ENCOUNTER 2016-10-29 13:34 | Outpatient (RCR) | payer MEDICARE ==
[~2016-10-29] VITALS: Ht 162.6 cm; Wt 43.5 kg
== END 2016-11-15 | disposition home or self-care (01) ==
LOC: WCC 13:34
DX: L97.823 Non-pressure chronic ulcer of other part of left lower leg with necrosis of muscle (principal); L97.20 Non-pressure chronic ulcer of unspecified calf; L03.115 Cellulitis of right lower limb; I10 Essential (primary) hypertension; Z96.649 Presence of unspecified artificial hip joint
CPT/HCPCS: 87070; 87181; 87205; G0463